=== PATIENT | male | born 1990 | race Caucasian/White ===

== ENCOUNTER 2018-02-06 20:37 | Emergency (ER) | payer OTHER ==
[~2018-02-06] VITALS: Ht 188 cm; Wt 77.1 kg
--- OUTSIDE RECORDS SUMMARY | ~2018-02-06 | XMS | Clinical Summary ---
Demographics + + + | Address | [address] | | | [place] [address] | + + + | Home Phone | | + + + | Preferred Language | Unknown | + + + | Marital Status | Single | + + + | Hindu Affiliation | NON | + + + [...] [place] | | | | | [address] | | + + + + + Care Team Providers + +------+ + | Care Water Reuse Program Manager Name | Role | Phone | + +------+ + | No Pcp Per Patient | PP | Unavailable | + +------+ + Source Comments ASAD is fully live on both [facility] Ambulatory and [facility] InPatient.[facility] Allergies No Known Allergies Current Medications + [...] | | | | | | | anxiety | ANXIETY | | | | | [...] | | | | Depression Treatment | bedtime.Take half of | | | | | | | Adjunct | a 100MG tablet | | | | | | | | every 4 hours as | | [...] | + + + + + | INFLUENZA VACCINE | | | | | (FLU SHOT) | 7 | | | + + + + + Results Not on filefrom Last 3 Months
--- OUTSIDE RECORDS SUMMARY | ~2018-02-06 | XMS | Clinical Summary ---
Demographics + + + | Address | [address] | | | [place] [address] | + + + | Home Phone | | + + + | Preferred Language | Unknown | + + + | Marital Status | Single | + + + | Spiritism Affiliation | NON | + + + [...] [place] | | | | | [address] | | + + + + + Care Team Providers + +------+ + | Care Compliance Vice President Name | Role | Phone | + +------+ + | No Pcp Per Patient | PP | Unavailable | + +------+ + Source Comments ASAD is fully live on both [facility] Ambulatory and [facility] InPatient.[facility] Allergies No Known Allergies Current Medications [...]
[~2018-02-06 20:37] MED LIST: ANUSOL-HC30 GM PR; COLACE100 MG PO; CYCLOBENZAPRINE10 MG PO; IBUPROFEN800 MG PO; NAPROSYN500 MG PO; NORCO 5-325 TA1 EACH PO; ONDANSETRON ODT8 MG PO; PENICILLIN V P250 MG PO; PENICILLIN V P500 MG PO; PROTONIX40 MG PO; TRAMADOL HCL50 MG PO; VICODIN 5-3001 EACH PO; ZOFRAN ODT8 MG PO
[2018-02-06] MEDS ORDERED: AMOX TR-K CLV1 EAC1 PO (21:12)
== END 2018-02-06 21:30 | disposition home or self-care (01) ==
LOC: ED 20:37
DX: H66.93 Otitis media, unspecified, bilateral (principal); J01.00 Acute maxillary sinusitis, unspecified; F31.9 Bipolar disorder, unspecified; F32.9 Major depressive disorder, single episode, unspecified; F41.9 Anxiety disorder, unspecified; F17.200 Nicotine dependence, unspecified, uncomplicated
CPT/HCPCS: 99282

== ENCOUNTER 2019-03-01 12:28 | Emergency (ER) | payer OTHER ==
[~2019-03-01] VITALS: Ht 188 cm; Wt 77.1 kg
--- OUTSIDE RECORDS SUMMARY | ~2019-03-01 | XMS | Clinical Summary ---
Demographics + + + | Address | [address] | | | [place] [address] | + + + | Home Phone | | + + + | Preferred Language | Unknown | + + + | Marital Status | Single | + + + | Confucianism Affiliation | NON | + + + | Race | White | + + + | Ethnic Group | Not or | + + + Author + + + | Author | [facility] | + + + | Organization | [facility] | + + + | Address | Unknown | + + + | Phone | Unavailable | + + + Support + + + + + | Name | Relationship | Address | Phone | + + + + + | PJ FERNANDEZ | ECON | [address] | | | | | [place] | | | | | [address] | | + + + + + Care Team Providers + +------+ + | Care First Aid Trainer Name | Role | Phone | + +------+ + | No Pcp Per Patient | PP | Unavailable | + +------+ + Source Comments ASAD is fully live on both [facility] Ambulatory and [facility] InPatient.[facility] Allergies No Known Allergies Current Medications + + +---------+---------+------+------+-------+ | Prescription | Sig. | Disp. | Refills | Star | End | Statu | | | | | | t | Date | s | | | | | | Date | | | + + +---------+---------+------+------+-------+ | hydrOXYzine | Take 50 mg by mouth | | | | | Activ | | pamoate 50 mg oral | every six hours as | | | | | e | | capsuleIndications: | needed. Indications: | | | | | | | anxious | ANXIETY | | | | | | + + +---------+---------+------+------+-------+ | QUEtiapine 100 mg | Take by mouth: 1 | 42 | 0 | 04/0 | | Activ | | oral tablet | tablet daily in the | tablet | | 8/20 | | e | | | morning, 2 tablets | | | 14 | | | | | (200mg) daily at | | | | | | | | bedtime, and may | | | | | | | | take 1/2 tablet | | | | | | | | (50mg) every 4 hours | | | | | | | | as needed for | | | | | | | | agitation | | | | | | + + +---------+---------+------+------+-------+ | FLUoxetine 20 mg | Take 1 capsule by | 7 | 0 | 05/0 | | Activ | | oral capsule | mouth once daily. | capsule | | 1/20 | | e | | | | | | 14 | | | + + +---------+---------+------+------+-------+ | lithium carbonate | Take 2 tablets by | 28 | 0 | 05/0 | | Activ | | 300 mg oral tablet | mouth two times | tablet | | 1/20 | | e | | | daily. | | | 14 | | | + + +---------+---------+------+------+-------+ | QUEtiapine | Take one 100MG | 35 | 0 | 05/0 | | Activ | | (SEROQUEL) 100 mg | tablet ever morning. | tablet | | 1/20 | | e | | oral | Take two 100MG | | | 14 | | | | tabletIndications: | tablets at | | | | | | | Additional | bedtime.Take half of | | | | | | | Medications to Treat | a 100MG tablet | | | | | | | Depression | every 4 hours as | | | | | | | | needed for | | | | | | | | agitation. | | | | | | | | Indications: | | | | | | | | Depression Treatment | | | | | | | | Adjunct | | | | | | + + +---------+---------+------+------+-------+ | hydrOXYzine | Take 2 capsules by | 14 | 0 | 05/0 | | Activ | | pamoate 25 mg oral | mouth every four | capsule | | 1/20 | | e | | capsule | hours as needed for | | | 14 | | | | | anxiety. | | | | | | + + +---------+---------+------+------+-------+ Active Problems + + + | Problem | Noted Date | + + + | Opiate dependence (HCC) | 03/08/2014 | + + + | Suicidal ideation | 03/06/2014 | + + + | Mood disorder (HCC) | 02/10/2014 | + + + Social History + + + +--------+------+ | Tobacco Use | Types | Packs/Day | Years | Date | | | | | Used | | + + + +--------+------+ | Current Every Day | Cigarettes | 1.5 | | | | Smoker | | | | | + + + +--------+------+ + + +---------+ + | Alcohol Use | Drinks/We | oz/Week | Comments | | | ek | | | + + +---------+ + | No | | | h/o alcohol abuse; clean x 90 days | + + +---------+ + + + + | Sex Assigned at | Date Recorded | | | | + + + | Not on file | | + + + Last Filed Vital Signs + + + + | Vital Sign | Reading | Time Taken | + + + + | Blood Pressure | 97/56 | 03/09/2014 7:53 AM PDT | + + + + | Pulse | 70 | 03/09/2014 7:53 AM PDT | + + + + | Temperature | 36.4 C (97.5 F) | 03/09/2014 7:53 AM PDT | + + + + | Respiratory Rate | 16 | 03/09/2014 7:53 AM PDT | + + + + | Oxygen Saturation | 99% | 03/06/2014 6:55 PM PDT | + + + + | Inhaled Oxygen | - | - | | Concentration | | | + + + + | Weight | 88.7 kg (195 lb 8 | 03/06/2014 7:20 PM PDT | | | oz) | | + + + + | Height | 188 cm (6' 2") | 03/06/2014 7:20 PM PDT | + + + + | Body Mass Index | 25.1 | 03/06/2014 7:20 PM PDT | + + + + Plan of Treatment + + + + + | Health Maintenance | Due Date | Last Done | Comments | + + + + + | Pneumococcal (Adult) | | | | | ( - PPSV23) | 0 | | | + + + + + | Influenza (Flu) | | | | | vaccination (#1) | 8 | | | + + + + + Results Not on filefrom Last 3 Months Insurance + +--------+ +--------+ + + | Payer | Benefi | Subscriber | Type | Phone | Address | | | t Plan | ID | | | | | | / | | | | | | | Group | | | | | + +--------+ +--------+ + + | [place] | BLUE | xxxxxxxxx | PPO | [phone] [address] [phone] [place] | | | CROSS | | | [address] | [place] [address] | | | [place] | | | | | | | L | | | | | + +--------+ +--------+ + + | [employer] MEDICAID | CON[employer]VER | xxxxxxxx | Medica | | | | | [place] | | id | | | | | [place] | | | | | + +--------+ +--------+ + + + +--------+ +--------+ + + | Guarantor Name | Accoun | Relation to | Date | Phone | Billing Address | | | t Type | Patient | of | | | | | | | | | | + +--------+ +--------+ + + | CARLOS FERNANDEZ | Person | Self [birth year] | Home: | [address] | | | al/Fam | | 1989 | - | [place] [address] | | | breanna | | | [address] | | + +--------+ +--------+ + + | CARLOS FERNANDEZ | Behavi | Self | [birth year] | Home: | [address] | | | oral | | 1989 | - | [place] [address] | | | Health | | | [address] | | + +--------+ +--------+ + +
--- OUTSIDE RECORDS SUMMARY | ~2019-03-01 | XMS | Clinical Summary ---
Demographics + + + | Address | [address] | | | [place] [address] | + + + | Home Phone | | + + + | Preferred Language | Unknown | + + + | Marital Status | Single | + + + | Sabianism Affiliation | Unknown | + + + | Race | Unknown | + + + | Ethnic Group | Unknown | + + + Author + + + | Author | [facility] | + + + | Organization | [facility] | + + + | Address | Unknown | + + + | Phone | Unavailable | + + + Support + + + + + | Name | Relationship | Address | Phone | + + + + + | Paulie Fernandez | ECON | [address] | | | | | [place] | | | | | [address] | | + + + + + Care Team Providers + +------+ + | Care Fruit Farmer Name | Role | Phone | + +------+ + | Dr. Florence | PP | Unavailable | + +------+ + Allergies Not on File Current Medications Not on file Active Problems Not on file Social History + +-------+ +--------+------+ | Tobacco Use | Types | Packs/Day | Years | Date | | | | | Used | | + +-------+ +--------+------+ | Never Assessed | | | | | + +-------+ +--------+------+ + + + | Sex Assigned at | Date Recorded | | | | + + + | Not on file | | + + + Plan of Treatment Not on file Results Not on filefrom Last 3 Months"
--- OUTSIDE RECORDS SUMMARY | ~2019-03-01 | XMS | Clinical Summary ---
Demographics + + + | Address | [address] | | | [place] [address] | + + + | Home Phone | | + + + | Preferred Language | Unknown | + + + | Marital Status | Single | + + + | Latter-Day Affiliation | Unknown | + + + | Race | Unknown | + + + | Ethnic Group | Unknown | + + + Author + + + | Author | [facility] | + + + | Organization | [facility] | + + + | Address | Unknown | + + + | Phone | Unavailable | + + + Support + + + + + | Name | Relationship | Address | Phone | + + + + + | Paulie Fernandez | ECON | [address] | | | | | [place] | | | | | [address] | | + + + + + Care Team Providers + +------+ + | Care Laborer Laboratory Name | Role | Phone | + [...]
--- OUTSIDE RECORDS SUMMARY | ~2019-03-01 | XMS | Clinical Summary ---
Demographics + + + | Address | [address] | | | [place] [address] | + + + | Home Phone | | + + + | Preferred Language | Unknown | + + + | Marital Status | Single | + + + | Muslim Affiliation | NON | + + + [...] [place] | | | | | [address] | | + + + + + Care Team Providers + +------+ + | Care Computer Systems Administrator Name | Role | Phone | + +------+ + | No Pcp Per Patient | PP | Unavailable | + +------+ + Source Comments ASAD is fully live on both [facility] Ambulatory and [facility] InPatient.[facility] Allergies No Known Allergies Current Medications [...] | PPO | [phone] | [address] [phone] [place] | | | CROSS | | | [address] | [place] [address] | | | [place] | | | | | | | L | | | | | + +--------+ +--------+ + + | LOCOMOTIVE INSPECTOR MEDICAID | LOCOMOTIVE INSPECTOR | xxxxxxxx | Medica | | | [...] 1989 | - | [place] [address] | | | [place] | | | [address] | | + +--------+ +--------+ + + | CARLOS FERNANDEZ | Behavi | Self | [birth year] | Home: | [address] | | | oral | | 1989 | - | [place] [address] | | | Health | | | [address] | | + +--------+ +--------+ + +
[~2019-03-01 12:28] MED LIST changes: +AMOX TR-K CLV1 EAC1 PO
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
[2019-03-01] MEDS ORDERED: KEFLEX500 MG PO (14:02)
[2019-03-01] MEDS ORDERED: MEDROL4 MG PO (14:02)
[2019-03-01] MEDS ORDERED: IBU600 MG PO (14:02)
== END 2019-03-01 14:19 | disposition home or self-care (01) ==
LOC: ED 12:28
DX: L03.116 Cellulitis of left lower limb (principal); L03.115 Cellulitis of right lower limb; F31.9 Bipolar disorder, unspecified; F41.9 Anxiety disorder, unspecified; F17.200 Nicotine dependence, unspecified, uncomplicated
CPT/HCPCS: 73630; 80053; 84550; 85025; 96374; 99283-25; J1885

== ENCOUNTER 2021-05-08 20:51 | Emergency (ER) | payer OTHER ==
[~2021-05-08] VITALS: Ht 188 cm; Wt 72.6 kg
[~2021-05-08 20:51] MED LIST changes: +IBU600 MG PO; +KEFLEX500 MG PO; +MEDROL4 MG PO
--- OUTSIDE RECORDS SUMMARY | 2021-05-08 21:02 | XMS ---
PreManage Notification: CAMERON ARMIJO Security Valve Liner Rubber Events No recent Security Events currently on file CRITERIA MET - Group Notification CARE PROVIDERS [facility] 10/14/2018-Current PHONE: [phone] Gurvinder has no Care Guidelines for this patient. EKun VISIT COUNT (12 MO.) 1 JASON Nava TOTAL 1 NOTE: Visits indicate total known visits. ED/UCC VISIT TRACKING (12 MO.) 05/08/2021 20:52 [facility] [place] TYPE: Emergency COMPLAINT: - HEADACHE, POSS HEAD INJURY INPATIENT VISIT TRACKING (12 MO.) No inpatient visits to display in this time frame [id number]
[2021-05-08] MEDS ORDERED: ZOFRAN4 MG PO (22:25)
== END 2021-05-08 22:45 | disposition home or self-care (01) ==
LOC: ED 20:51
DX: S06.0X0A Concussion without loss of consciousness, initial encounter (principal); S16.1XXA Strain of muscle, fascia and tendon at neck level, initial encounter; S40.011A Contusion of right shoulder, initial encounter; S20.211A Contusion of right front wall of thorax, initial encounter; W17.89XA Other fall from one level to another, initial encounter
CPT/HCPCS: 70450; 71046; 72125; 73030; 99284-25

== ENCOUNTER 2021-07-13 14:13 | Emergency (ER) | payer OTHER ==
[~2021-07-13] VITALS: Ht 188 cm; Wt 90.7 kg
[~2021-07-13 14:13] MED LIST changes: +ZOFRAN4 MG PO
--- OUTSIDE RECORDS SUMMARY | 2021-07-13 14:20 | XMS ---
PreManage Notification: CAMERON ARMIJO Security Catalogue And Special Products Manager Events No recent Security Events currently on file CRITERIA MET - [facility] - 2 Visits in 30 Days - Group Notification CARE PROVIDERS [facility], Clinic[facility]Center: [facility] PHONE: [phone] [facility] 10/14/2018-Current PHONE: [phone] Gurvinder has no Care Guidelines for this patient. E.Madhu VISIT COUNT (12 MO.) [facility] TOTAL 3 NOTE: Visits indicate total known visits. ED/UCC VISIT TRACKING (12 MO.) 07/13/2021 14:14 JASON Heller TYPE: Emergency COMPLAINT: - CHEST PAIN,LEFT ARM PAIN 06/22/2021 23:04 [facility] DIAGNOSES: 0. SI 05/08/2021 20:52 [facility] [place] TYPE: Emergency COMPLAINT: - HEADACHE, POSS HEAD INJURY DIAGNOSES: - Contusion of right shoulder, initial encounter - Concussion without loss of consciousness, initial encounter - Other fall from one level to another, initial encounter - Contusion of right front wall of thorax, initial encounter - Strain of muscle, fascia and tendon at neck level, initial encounter INPATIENT VISIT TRACKING (12 MO.) No inpatient visits to display in this time frame [id number]
--- NOTE | 2021-07-13 19:04 | EKG ---
[facility] [address] [place] [address] Signed Sinus tachycardia Cannot rule out Inferior infarct , age undetermined Abnormal ECG No previous ECGs available Confirmed by BECKY DOMINGUEZ MD ([id number]) on 07/13/2021 7:04:04 PM Electronically Signed By: BECKY DOMINGUEZ MD 07/13/21 1904 PATIENT NAME: CAMERON ARMIJO Electrocardiogram DATE OF : [birth year] PHYSICIAN: BECKY DOMINGUEZ MD REPORT #: [id number] REPORT IS CONFIDENTIAL AND NOT TO BE RELEASED WITHOUT AUTHORIZATION
== END 2021-07-13 18:28 | disposition home or self-care (01) ==
LOC: ED 14:13
DX: U07.1 COVID-19 (principal); Z87.891 Personal history of nicotine dependence
CPT/HCPCS: 71045; 80053; 81001; 83735; 84484; 85025; 85379; 93005; 93010; 99285-25; C9803; U0003

== ENCOUNTER 2021-07-15 20:30 | Emergency (ER) | payer OTHER ==
[~2021-07-15] VITALS: Ht 188 cm; Wt 90.7 kg
--- OUTSIDE RECORDS SUMMARY | 2021-07-15 20:32 | XMS ---
PreManage Notification: CAMERON ARMIJO Security Charger Operator Events No recent Security Events currently on file CRITERIA MET - Group Notification - [facility] - 2 Visits in 30 Days CARE PROVIDERS [facility], Clinic[facility]Center: [facility] PHONE: [phone] [facility] 10/14/2018-Current PHONE: [phone] Gurvinder has no Care Guidelines for this patient. E.DBrielle VISIT COUNT (12 MO.) [facility] TOTAL 4 NOTE: Visits indicate total known visits. ED/UCC VISIT TRACKING (12 MO.) 07/15/2021 20:30 [facility] [place] TYPE: Emergency COMPLAINT: - SHORTNESS OF BREATH 07/13/2021 14:14 [facility] [place] TYPE: Emergency COMPLAINT: - CHEST PAIN,LEFT ARM PAIN 06/22/2021 23:04 [facility] TYPE: Emergency DIAGNOSES: 0. SI 05/08/2021 20:[address] [facility] [address] [facility] [place] TYPE: Emergency COMPLAINT: - HEADACHE, POSS [...] visits to display in this time frame [email or web address]
--- NOTE | 2021-07-17 13:23 | EKG ---
[facility] [address] [place] [place] [address] Signed Sinus tachycardia Nonspecific T wave abnormality Abnormal ECG When compared with ECG of 13-JUL-2021 14:22, No significant change was found Confirmed by BECKY DOMINGUEZ MD ([id number]) on 07/17/2021 1:22:58 PM Electronically Signed By: BECKY DOMINGUEZ MD 07/17/21 1323 PATIENT NAME: CHERELLEJANINACAMERON MCGRATHON Electrocardiogram DATE OF : [birth year] PHYSICIAN: BECKY DOMINGUEZ MD REPORT #: [id number] REPORT IS CONFIDENTIAL AND NOT TO BE RELEASED WITHOUT AUTHORIZATION
== END 2021-07-15 21:55 | disposition home or self-care (01) ==
LOC: ED 20:30
DX: U07.1 COVID-19 (principal); Z87.891 Personal history of nicotine dependence
CPT/HCPCS: 71045; 93005; 93010; 99285-25

== ENCOUNTER 2021-08-15 09:57 | Emergency (ER) | payer OTHER ==
[~2021-08-15] VITALS: Ht 188 cm; Wt 90.7 kg
--- OUTSIDE RECORDS SUMMARY | 2021-08-15 10:00 | XMS ---
PreManage Notification: CAMERON ARMIJO Security Superintendent Mechanical Events 1 event(s) in the past 18 months Most recent security events: Elopement at [facility] 08/05/2021 10:22 - Other Details: PATIENT LWBS CRITERIA MET - 6 ED Visits in 6 Months - [facility] - 2 Visits in 30 Days - Group Notification CARE PROVIDERS [facility], Clinic[facility]Center: [facility] PHONE: [phone] [facility] 10/14/2018-Current PHONE: [phone] Gurvinder has no Care Guidelines for this patient. E.D. VISIT COUNT (12 MO[address] [facility] [address] [facility] [address] [facility] [place] TOTAL 6 NOTE: Visits indicate total known visits. ED/UCC VISIT TRACKING (12 MO.) 08/15/2021 09:58 [facility]ON [facility] [place] TYPE: Emergency COMPLAINT: - POSS HERNIA 08/05/2021 10:22 [facility] [place] TYPE: Emergency COMPLAINT: - TOOTH PAIN 07/15/2021 20:30 [facility] [place] TYPE: Emergency COMPLAINT: - SHORTNESS OF BREATH DIAGNOSES: - Personal history of nicotine dependence - 07/13/2021 14:14 [facility] [place] TYPE: Emergency COMPLAINT: - CHEST PAIN,LEFT ARM PAIN DIAGNOSES: - Anesthesia of skin - Personal history of nicotine dependence - Other chest pain - - Headache, unspecified 06/22/2021 23:04 [facility] DIAGNOSES: 0. SI 05/08/2021 20:52 [...] visits to display in this time frame [id number]
== END 2021-08-15 11:55 | disposition home or self-care (01) ==
LOC: ED 09:57
DX: K40.90 Unilateral inguinal hernia, without obstruction or gangrene, not specified as recurrent (principal); Z87.891 Personal history of nicotine dependence
CPT/HCPCS: 74177; 80053; 81001; 85025; 99284-25; Q9967

== ENCOUNTER 2021-09-15 09:00 | Emergency (ER) | payer OTHER ==
[~2021-09-15] VITALS: Ht 188 cm; Wt 100.9 kg
--- OUTSIDE RECORDS SUMMARY | 2021-09-15 09:02 | XMS ---
PreManage Notification: CAMERON ARMIJO Security Transportation Agent Events 1 event(s) in the past 18 months Most recent security events: Elopement at [facility] 08/05/2021 10:22 - Other Details: PATIENT LWBS CRITERIA MET - Group Notification - PDMP - ED - Positive COVID-19 Lab Result - [facility] - 6 ED Visits in 6 Months CARE PROVIDERS [facility] Clinic[facility]: [facility] PHONE: [phone] [facility] 10/14/2018-Current PHONE: [phone] Gurvinder has no Care Guidelines for this patient. E.D. VISIT COUNT (12 MO.) 1 [facility] [address] [facility] [address] [facility] [place] TOTAL 7 NOTE: Visits indicate total known visits. ED/UCC VISIT TRACKING (12 MO.) 09/15/2021 09:01 [facility]ON [facility] [place] TYPE: Emergency COMPLAINT: - HEADACHE 08/15/2021 09:58 [facility] [place] TYPE: Emergency COMPLAINT: - POSS HERNIA DIAGNOSES: - Personal history of nicotine dependence - Unilateral inguinal hernia, without obstruction or gangrene, not specified as recurrent - Left lower quadrant pain 08/05/2021 10:22 [facility] [place] TYPE: Emergency COMPLAINT: - TOOTH PAIN 07/15/2021 20:30 [facility] [place] [facility] TYPE: Emergency COMPLAINT: - SHORTNESS OF BREATH DIAGNOSES: - Personal history of nicotine dependence - 07/13/2021 14:14 [facility] COMPLAINT: - CHEST PAIN,LEFT ARM PAIN DIAGNOSES: - Anesthesia of skin - Personal history of nicotine dependence - Other chest pain - COVID- - Headache, unspecified 06/22/2021 23:04 [facility] DIAGNOSES: 0. SI 05/08/2021 20:52 [...] visits to display in this time frame [id number]
[2021-09-15] MEDS ORDERED: EXCEDRIN EXTRA1 EAC1 PO (09:18)
[2021-09-15] MEDS ORDERED: AMOXICILLIN500 MG PO (12:12)
== END 2021-09-15 13:00 | disposition home or self-care (01) ==
LOC: ED 09:00
DX: G43.909 Migraine, unspecified, not intractable, without status migrainosus (principal); J32.9 Chronic sinusitis, unspecified; Z20.822 Contact with and (suspected) exposure to COVID-19; Z87.891 Personal history of nicotine dependence
CPT/HCPCS: 70450; 80053; 85025; 96365; 96366; 96375; 99284-25; J0780; J1100; J1200; J1885; J3475; J7030; U0003

== ENCOUNTER 2021-11-27 09:20 | Emergency (ER) | payer OTHER ==
[~2021-11-27] VITALS: Ht 188 cm; Wt 102.1 kg
[~2021-11-27 09:20] MED LIST changes: +AMOXICILLIN500 MG PO; +EXCEDRIN EXTRA1 EAC1 PO
[2021-11-27] MEDS ORDERED: HYDROXYZINE HCL50 MG PO (09:48)
--- OUTSIDE RECORDS SUMMARY | 2021-11-27 09:50 | XMS ---
PreManage Notification: CAMERON ARMIJO Security Display Decorator Events 1 event(s) in the past 18 months Most recent security events: Elopement at [facility] 08/05/2021 10:22 - Other Details: PATIENT LWBS CRITERIA MET - Group Notification - ED - Positive COVID-19 Lab Result - [facility] - 6 ED Visits in 6 Months CARE PROVIDERS [facility] 10/14/2018-Current PHONE: Unknown Gurvinder has no Care Guidelines for this patient. Yudith VISIT COUNT (12 MO.) 1 Brielle Goode M.C.[address] TOTAL 8 NOTE: Visits indicate total known visits. ED/UCC VISIT TRACKING (12 MO.) 11/27/2021 09:21 [facility]ON [facility] [place] TYPE: Emergency COMPLAINT: - VOMITING, ABDOMINAL PAIN 09/15/2021 09:01 [facility] [place] TYPE: Emergency COMPLAINT: - HEADACHE DIAGNOSES: - Personal history of nicotine dependence - Headache, unspecified - Chronic sinusitis, unspecified - Migraine, unspecified, not intractable, without status migrainosus 08/15/2021 09:58 [facility] [place] TYPE: Emergency COMPLAINT: - POSS HERNIA DIAGNOSES: - Personal history of nicotine dependence - Unilateral inguinal hernia, without obstruction or gangrene, not specified as recurrent - Left lower quadrant pain 08/05/2021 10:22 JASON Heller TYPE: Emergency COMPLAINT: - TOOTH PAIN 07/15/2021 20:30 JASON Heller TYPE: Emergency COMPLAINT: - SHORTNESS OF BREATH DIAGNOSES: - Personal history of nicotine dependence - - 07/13/2021 14:14 JASON Heller TYPE: Emergency COMPLAINT: - CHEST PAIN,LEFT ARM PAIN DIAGNOSES: - Anesthesia of skin - Personal history of nicotine dependence - Other chest pain - COVID- - Headache, unspecified 06/22/2021 23:04 [facility] TYPE: Emergency DIAGNOSES: 0. SI 05/08/2021 [...] visits to display in this time frame [id number]
== END 2021-11-27 14:29 | disposition left against medical advice (07) ==
LOC: ED 09:20
DX: R10.32 Left lower quadrant pain (principal); N50.812 Left testicular pain; Z20.822 Contact with and (suspected) exposure to COVID-19; Z87.891 Personal history of nicotine dependence; Z79.899 Other long term (current) drug therapy
CPT/HCPCS: 74177; 80053; 85025; 96375; 99284-25; C9803; J1170; J2405; Q9967; U0003

== ENCOUNTER 2021-12-05 19:35 | Emergency (ER) | payer OTHER ==
[~2021-12-05] VITALS: Ht 188 cm; Wt 104.3 kg
[~2021-12-05 19:35] MED LIST changes: +HYDROXYZINE HCL50 MG PO
--- OUTSIDE RECORDS SUMMARY | 2021-12-05 19:38 | XMS ---
PreManage Notification: CAMERON ARMIJO Security Qa Test Lead Events 2 event(s) in the past 18 months Most recent security events: Elopement at [facility] 11/27/2021 09:21 - Other Details: PATIENT LEFT AMA Elopement at [facility] 08/05/2021 10:22 - Other Details: PATIENT LWBS CRITERIA MET - ED - Positive COVID-19 Lab Result - [facility] - [facility] - 2 Visits in 30 Days - PDMP - Group Notification - 6 ED Visits in 6 Months CARE PROVIDERS JO ANN GREER Current PHONE: [phone] [facility] 11/27/2021-Current PHONE: Unknown Gurvinder has no Care Guidelines for this patient. E.D. VISIT COUNT ([address] [facility]ON Nava TOTAL 9 NOTE: Visits indicate total known visits. ED/UCC VISIT TRACKING (12 MO.) 12/05/2021 19:36 [facility] [place] TYPE: Emergency COMPLAINT: - OVERDOSE 11/27/2021 09:21 [facility] [place] TYPE: Emergency COMPLAINT: - VOMITING, ABDOMINAL PAIN DIAGNOSES: - Personal history of nicotine dependence - Left testicular pain - Other alf (current) drug therapy - Left lower quadrant pain 09/15/2021 09:01 [facility] [place] TYPE: Emergency [...] Left lower quadrant pain 08/05/2021 10:22 [facility] [place] TYPE: Emergency COMPLAINT: - TOOTH PAIN 07/15/2021 20:30 [facility] [place] TYPE: Emergency COMPLAINT: - SHORTNESS OF BREATH DIAGNOSES: - Personal history of nicotine dependence - COVID- 07/13/2021 14:[address] [facility] [address] [facility] [place] TYPE: Emergency COMPLAINT: - CHEST PAIN,LEFT ARM PAIN DIAGNOSES: - Anesthesia of skin - Personal history of nicotine dependence - Other chest pain - COVID- - Headache, unspecified 06/22/2021 23:04 [facility] TYPE: Emergency DIAGNOSES: 0. SI 05/08/2021 20:[address] [facility] [address] [facility] [place] TYPE: Emergency COMPLAINT: [...] visits to display in this time frame [id number]
[2021-12-05] MEDS ORDERED: DESVENLAFAXINE50 M3 PO (19:45)
--- NOTE | 2021-12-05 20:35 | NUR ---
EKG DONE JUST BEFORE HE LEFT FIRST TIME.
[2021-12-06] MEDS ORDERED: REXULTI3 MG PO (07:43)
--- NOTE | 2021-12-06 13:32 | EKG ---
[facility] [address] [place] [address] Signed Sinus tachycardia Otherwise normal ECG When compared with ECG of 15-JUL-2021 20:36, T wave inversion no longer evident in Inferior leads T wave inversion no longer evident in Lateral leads Confirmed by LOR CUTLER DO ([id number]) on 12/06/2021 1:32:45 PM Electronically Signed By: LOR CUTLER DO 12/06/21 1332 PATIENT NAME: CHERELLELORENACAMERON Electrocardiogram DATE OF : [birth year] PHYSICIAN: LOR CUTLER DO REPORT #: [id number] REPORT IS CONFIDENTIAL AND NOT TO BE RELEASED WITHOUT AUTHORIZATION
== END 2021-12-05 19:59 | disposition left against medical advice (07) ==
LOC: ED 19:35
DX: T43.592A Poisoning by other antipsychotics and neuroleptics, intentional self-harm, initial encounter (principal); T43.212A Poisoning by selective serotonin and norepinephrine reuptake inhibitors, intentional self-harm, initial encounter; T43.622A Poisoning by amphetamines, intentional self-harm, initial encounter; Z87.891 Personal history of nicotine dependence; Z79.899 Other long term (current) drug therapy
CPT/HCPCS: 31500; 80053; 82010; 82553; 83735; 85025; 93005; 93010; 94002; 99285-25; G0480

== ENCOUNTER 2021-12-05 20:28 | Inpatient (IN) | payer OTHER ==
[~2021-12-05] VITALS: Ht 188 cm; Wt 101.7 kg
[~2021-12-05 20:28] MED LIST changes: +DESVENLAFAXINE50 M3 PO
--- OUTSIDE RECORDS SUMMARY | 2021-12-05 20:30 | XMS ---
PreManage Notification: CAMERON ARMIJO Security [employer] Driver Events 2 event(s) in the past 18 months Most recent security events: Elopement at [facility] 11/27/2021 09:21 - Other Details: PATIENT LEFT AMA Elopement at [facility] 08/05/2021 10:22 - Other Details: PATIENT LWBS CRITERIA MET - PDMP - ED - Positive COVID-19 Lab Result - [facility] - [facility] - 2 Visits in 30 Days - 6 ED Visits in 6 Months - Group Notification CARE PROVIDERS JO ANN GREER Current PHONE: [phone] [facility] 11/27/2021-Current PHONE: Unknown Gurvinder has no Care Guidelines for this patient. E.D. VISIT COUNT ([address] [facility] TOTAL 10 NOTE: Visits indicate total known visits. ED/UCC VISIT TRACKING (12 MO.) 12/05/2021 20:29 [facility] TYPE: Emergency COMPLAINT: - OD INTENTIONAL 12/05/2021 19:36 [facility] TYPE: Emergency COMPLAINT: - OVERDOSE 11/27/2021 09:21 [facility] TYPE: Emergency COMPLAINT: - VOMITING, ABDOMINAL PAIN DIAGNOSES: - Personal history of nicotine dependence - Left testicular pain - Other residential (current) drug therapy - Left lower quadrant [...] - Personal history of nicotine dependence - COVID-19 07/13/2021 14:14 [facility] TYPE: Emergency COMPLAINT: - CHEST PAIN,LEFT ARM PAIN DIAGNOSES: - Anesthesia of skin - Personal history of nicotine dependence - Other chest pain - COVID-19 - Headache, unspecified 06/22/2021 23:04 [facility]: [facility] DIAGNOSES: 0. SI [...] visits to display in this time frame [email or web address]
--- NOTE | 2021-12-06 02:00 | NUR ---
RECIEVED PT FROM ED, BEDSIDE REPORT GIVEN, RT ACCOMAPAINED RN AND PT TO CT, DURING CT PT BEGAN ATTEMPTING TO REMOVE ETT AND SIT UP, PROPOFOL TITRATED FROM 15 TO 20, AFTER 5 MINUTES PT WAS STILL RESTLESS, RASS OF +3, PROPOFOL INCREASED TO 25, RASS OF -4 ACHEIVED. ONCE IN CCU AND PT WAS BEING TRANSFERRED, RASS INCREASED TO +3 AGAIN AND PT WAS REACHING FOR ETT AND FIGHTING VENT, PROPOFOL INCREASED TO 30, RASS OF -3 ACHEIVED, PT APPEARS COMFORTABLE. PT PLACED ON MONITOR UPON ARRIVAL, VITAL SIGNS OBTAINED, OG WAS CONNECTED TO LOW INTM SUCTION, RT AT BEDSIDE TO SET UP VENT, ASSESSMENT AND ADMISSION COMPLETED, MEDICAITONS REVIEWED, ADDITIONAL IV WAS PLACED FOR SODIUM BICARB DRIP. PT APPEARS COMFORTABLE, HOB AT 30 DEGREES, RASS CURRENTLY -3
--- NOTE | 2021-12-06 05:44 | NUR ---
PT SEDATED AND INTUBATED, PROPOFOL CURRENTLY AT 35, VERSED AT 8, RASS OF -3. FIO2 DECREASED TO 40%, PT SATING AT 100%, REMAINS VERY TENSE AND STIFF IN EXTREMITIES
[2021-12-06] MEDS ORDERED: REXULTI3 MG PO (07:43)
--- NOTE | 2021-12-06 08:00 | NUR ---
PT RASS -3. V/S WITH VENT SETTINGS ARE WDL, PT IS NOT FIGHTING THE VENT. UPPER LOBES CLEAR, LOWER LOBES CLEAR BUT DIMINISHED. PUPILS 2MM AND FIXED. PT IS RELAXED AND LIMBS ARE EASY TO MOVE. RESTRAINTS ARE WDL SO FAR, ABD SOUNDS PRESENT, NO PERIPH. EDEMA NOTED, RADIAL AND PEDIS PULSES +2, URINE OUTPUT WDL.
--- NOTE | 2021-12-06 08:45 | NUR ---
PER DR. CUTLER PATIENT TO REMAIN ON VENT UNTIL CLEARED BY POISN CONTROL. WILL EVEALUATE WHEN ABLE.
--- NOTE | 2021-12-06 09:02 | NUR ---
MD CUTLER REVIEWD X-RAY. OG TUBE TO BE ADVANCED 10 CM, TUBE TO BE ADVANCED 3CM, WILL DO ANOTHER CHEST X-RAY AFTERWARDS.
--- NOTE | 2021-12-06 10:06 | NUR ---
ET TUBE WAS ADVNCED BY RT BY 4.5CM ABOUT 30 MINUTES AGO. FOR THE OG TUBE I WILL WAIT FOR X-RAY REPORT AND IF IG TUBE IS STILL NOT IN THE RIGHT PLACE, I WILL PULL IT AND RE-INSERT IT WERE MD CUTLER'S WISHES.
--- NOTE | 2021-12-06 10:49 | NUR ---
MED REC COMPLETED BY PHARMACY
--- NOTE | 2021-12-06 12:00 | NUR ---
PT ON VENT, NO FAMILY PRESENT. WILL FOLLOW
--- NOTE | 2021-12-06 12:00 | NUR ---
ALL LOBES CLEAR, RASS -3 AT THIS TIME , URINE OUTPUT HAS DECREASED THOUGH. WILL CONTINUE TO MONITOR. NO PERIPH. EDMEA NOTED, MUSCLES ARE RELAXED, PT AFEBRILE, OVERALL NO NEW CONCERNS NOTED WITH THIS ASSESSMENT.
--- NOTE | 2021-12-06 13:00 | NUR ---
ETT TUBE NOW IS 28CM AT THE LIP. OG-TUBE HAS BEEN ADVANCED FOR ABOUT 17CM OVERALL. WAITING ON CHEST X-RAY REPORT.
--- NOTE | 2021-12-06 13:34 | EKG ---
[facility] [address] [facility] [facility] [place], [place] [address] Signed Normal sinus rhythm Nonspecific T wave abnormality Abnormal ECG When compared with ECG of 05-DEC-2021 19:54, (Unconfirmed) No significant change was found Confirmed by LOR CUTLER DO ([id number]) on 12/06/2021 1:34:06 PM Electronically Signed By: LOR CUTLER DO 12/06/21 1334 PATIENT NAME: CHERELLEJANINACAMERON MCGRATHON Electrocardiogram DATE OF : [birth year] PHYSICIAN: LOR CUTLER DO REPORT #: [id number] REPORT IS CONFIDENTIAL AND NOT TO BE RELEASED WITHOUT AUTHORIZATION
--- NOTE | 2021-12-06 14:30 | NUR ---
LAST CHEST X-RAY STATED THAT OG-TUBE WAS STABLE. AT THIS TIME IT HAS BEEN IMPOSSIBLE TO FLUSH THE TUBE WITH MORE THAN 20MLS OF H2O DUE TO RESISTANCE. THE TUBE WAS PULLED AND ADVANCED 4CM [address] TO SEE IF THAT WOULD CHANGE ANYTHING. UNFORTUNATLY, THE RESISTANCE ENCOUNTERED DID NOT CHANGE. WILL CALL MD BERRIOS ONCE THEY ARE DONE WITH THEIR REPORT.
--- NOTE | 2021-12-06 15:47 | NUR ---
CALLED MD BERRIOS ABOUT OG TUBE. RECEIVED ORDERS TO PULL OG TUBE AND RE-INSERT A NEW ONE. KUB AFTERWARDS.
--- NOTE | 2021-12-06 16:31 | NUR ---
NEW OG-TUBE PLACED. WAITING ON X-RAY CONFIRMATION AT THIS TIME. URINE HAS A GREEN TINT. PERHAPS FROM THE PROPOFOL. URINE OUTPUT ADEQUATE AGAIN, PT ONCE AGAIN RE-POSITIONED. ALL LOBES CLEAR, ABD SOUNDS PRESENT. SOME GENERALIZED EDEMA NOTED IN BILATERAL HANDS AT THIS TIME. V/S STABLE. OVERALL NO NEW CONCERNS NOTED.
--- NOTE | 2021-12-06 18:31 | NUR ---
OG TUBE RUNNING ON L/I/S. BLOOD PRESENT AT THIS TIME. PT SUCTIONED ORALLY AND INLINE. V/S STABLE.
--- NOTE | 2021-12-06 21:19 | NUR ---
UPON ARRIVAL TO SHIFT, PT SEDATED AND INTUBATED, RASS -4, HEAD TO TOE ASSESSMENT COMPLETED, MEDICAITONS REVIEWED AND DRLINDEN VERIFIED, PT APPEARS COMFORTABLE, OG CONNECTED TO LOW INTM SUCTION, BLOOD TINGED CONTENTS, DR BERRIOS CALLED AND ASKED IF SHE WOULD LIKE Q6 BLOOD SUGAR MONITORING ON PT DUE TO INTUBATION AND NPO FOR OVER 24 HOURS, STATED SHE DOESN'T THINK HE NEEDS Q6 BUT OKAY TO SPOT TONIGHT IF NEEDED.
--- NOTE | 2021-12-06 21:35 | NUR ---
PT APPEARS RESTLESS AND IS REACHING FOR TUBE, RASS +1. VERSED TITRATED TO 12MG/HR AND PROPOFOL TITRATED TO 50MCG/KG/MIN. PT BOOSTED UP IN BED AND RESTRAINTS CHECKED. ORAL SUCTIONING PROVIDED, COPIOUS AMOUNT OF CLEAR SECRETIONS REMOVED FROM MOUTH. PRIMARY RN, NANDO, UPDATED ON SEDATION CHANGES.
--- NOTE | 2021-12-07 01:46 | NUR ---
PT BEGAN WAKING UP, RASS +1, WHEN MORE AWAKE PT BEGAN HAVING CLONUS IN BILATERAL LOWER EXTERMITIES WELL SPIKED A FEVER OF 100.0. POISON CONTROL CALLED TO DISCUSS SYMPTOMS. THEY STATED IT APPEARS THOUGH HE MAY HAVE BEEN HAVING CLONUS HOWEVER THE SEDATION HAS BEEN MASKING IT. THEY RECOMMENDED KEEPING HIM SEDATED AT A RASS OF -5 AND MONITORING FEVERS. THEY ALSO STATED TO ENSURE ADEQUATE URINE OUTPUT AND RENAL FUNCTION TO ENSURE HE CAN CLEAR THE MEDICAITON HE OVERDOSED ON. THEY STATED THERE IS A HIGH RISK OF PT HAVING A SEIZURE IF HE DOES NOT STAY VERY SEDATED. AFTER PHONE CALL, PT SEDATED TO A RASS OF -5 AND RECTAL TYLENOL GIVEN FOR FEVER. TAY SCHAEFER MONITOR AND NOTIFIY POISON CONTROL AND DR BERRIOS OF ANY CHANGES.
--- NOTE | 2021-12-07 03:03 | NUR ---
PT APPEARS RESTLESS, COUGHING AND GAGGING ON ETT. HR SINUS TACHY AT 108. PRN VALIUM GIVEN.
--- NOTE | 2021-12-07 04:55 | NUR ---
PT FEBRIL AT 100.1, UNABLE TO GIVE MORE TYLENOL AT THIS TIME, ICE PACKS APPLIED TO ARMPITS AND GROIN
--- NOTE | 2021-12-07 07:30 | NUR ---
REPORT RECIEVED. ON VENT WITH HOB ELEVATED.
--- NOTE | 2021-12-07 08:00 | NUR ---
ASSESSMENT DONE. CLONUS NOTED WITH MILD DORSIFLEXION AT ANKLE. PROPOFOL AT 50 MCG/KG/MIN INFUSING, VERSED GTT AT 14 MG/HR. IVF OF D5 WITH BICARB AT 125 ML/HR, VENT SETTINGS TV-640, FIO2-21, PEEP-5, CMV-16, PIP-30, ETCO2-38. SUCTIONED FOR ORAL SECRETION AND ETT.ETT-TAPED 28 AT LIP AND IS SIZE 7.5. MONTAGUE CATH PATENT. ORAL GASTRIC TUBE TO LIS WITH DARK SECRETIONS NOTED. ORAL CARE GIVEN. WRIST RESTRAINS ON.
--- NOTE | 2021-12-07 09:40 | NUR ---
VALIUM 10 MG IV GIVEN PRIOR TO AM CARES. REMAINS ON VENT WITH TV-640, CMV-16, FIO2-21,PEEP-5, SIZE 7.5 ETT, 28 AT LIP. MONTAGUE CATH PATENT WITH YELLOW URINE NOTED. SEDATED WITH PROPOFOL 50 MCG/KG/MIN, VERSED 14 MG/HR. PRN VALIUM. REMAINS ON BICARB GTT AT 1125 ML/HR. WRIST RESTRAINS ON. HOB ELEVATED.
--- NOTE | 2021-12-07 13:19 | NUR ---
CONTINUES ON SEDATION REMAINS ON VENT. CURRENTLY ON PROFOLOL AT 50 MG/KG/MIN. VERSED GTT AT 14 MG/HR. NO CHANGES IN VENT SETTINGS. MONTAGUE CATH PATENT WIOTH QA AMOUNT OF URINE NOTED. T 100.4 ORAL, AX TEMP WAS 98.8. REPOSITIONED. IS CALM ON VENT AT THIS TIME.
--- NOTE | 2021-12-07 13:45 | NUR ---
VALIUN 10 MG IV GIVEN PATIENT RESTLESS.
--- NOTE | 2021-12-07 15:15 | NUR ---
PROPOFOL INCREASED TO 70 MCG/KG/MIN EYES OPEN, MOVING LEGS, SEVERE COUGHING EPISODE, NOT FOLLOWING COMMANDS.
--- NOTE | 2021-12-07 16:16 | NUR ---
DR. BERRIOS AWARE OF FEVER OF 102.7. BLOOD CULTURES ORDERED. TYLENOL SUPP GIVEN. ASSESSMENT DONE.
--- NOTE | 2021-12-07 19:30 | NUR ---
PATIENT REPORT RECIEVED FROM TERRY GORDON. VENT SETTINGS PEEP 5, FI02 30, VT 640, RR 16, ETCO2 32. BREATHING EQUAL AND UNLABORED.
--- NOTE | 2021-12-07 20:00 | NUR ---
PATIENT ASSESSMENT COMPLETE. PROPOFOL RUNNING AT 60 MCG/KG/MIN. [place] RUNNING AT 14 MG/HR, SODIUM BICARB 125 MLS/HR. PATIENT RASS BETWEEN -3, -4. LUNG SOUNDS ARE CLEAR THROUGHOUT. VENT SETTINGS 30%FIO2, PEEP 5, VT 640, RR 16. HEART RATE 80-90 BPM. SINUS RHYTHM. TEMP 100.0. URINE GREEN, YELLOW AND CLEAR. NO BM. BOWEL TONES HYPOACTIVE. ORAL GASTRIC TUBE LIS DARK SECREATIONS. PATIENT EXTERMITIES STIFF WITH ROM. CLONUS FELT IN ANKLES. PULSES FELT STRONG. PATIENT WARM TO TOUCH. IV SITES PATENT. THIS RN IN ROOM AT THIS TIME.
--- NOTE | 2021-12-07 20:24 | NUR ---
PRN VALIUM 10 MG IV GIVEN PRIOR TO CARES. PATIENT CARE COMPLETE. REPOSITIONED. RESTRAINT CARE COMPLETE AND ROM. PULSES FELT STRONG. ORAL CARE AND SUCTIONING COMPLETE.
--- NOTE | 2021-12-07 20:24 | EKG ---
[facility] [address] [facility] [place] [address] Signed Normal sinus rhythm Cannot rule out Inferior infarct , age undetermined T wave abnormality, consider lateral ischemia Abnormal ECG When compared with ECG of 06-DEC-2021 00:23, (Unconfirmed) Inverted T waves have replaced nonspecific T wave abnormality in Inferior leads Inverted T waves have replaced nonspecific T wave abnormality in Lateral leads Confirmed by IZZY BERRIOS MD ([id number]) on 12/07/2021 8:24:02 PM Electronically Signed By: IZZY BERRIOS MD 12/07/212023 PATIENT NAME: CAMERON ARMIJO Electrocardiogram DATE OF : [birth year] PHYSICIAN: IZZY BERRIOS MD REPORT #: [id number] REPORT IS CONFIDENTIAL AND NOT TO BE RELEASED WITHOUT AUTHORIZATION
--- NOTE | 2021-12-07 20:24 | EKG ---
[facility] [address] [facility] [facility] [place] [address] Signed Normal sinus rhythm Cannot rule out Inferior infarct (cited on or before 06-DEC-2021) T wave abnormality, consider lateral ischemia Abnormal ECG When compared with ECG of 06-DEC-2021 09:28, (Unconfirmed) Non-specific change in ST segment in Anterior leads Confirmed by IZZY BERRIOS MD ([id number]) on 12/07/2021 8:24:40 PM Electronically Signed By: IZZY BERRIOS MD 12/07/212023 PATIENT NAME: CAMERON ARMIJO Electrocardiogram DATE OF : [birth year] PHYSICIAN: IZZY BERRIOS MD REPORT #: [id number] REPORT IS CONFIDENTIAL AND NOT TO BE RELEASED WITHOUT AUTHORIZATION
--- NOTE | 2021-12-07 22:00 | NUR ---
PROPOFOL TITRATED UP TO 70 MCG/KG/MIN. PATIENT RASS 0. PATIENT MOVING HEAD AND COUGHING. RESTRAINT CARE COMPLETE. ROM COMPLETE. PULSES FELT STRONG. ORAL SECRETIONS SUCTIONED.
--- NOTE | 2021-12-07 23:35 | NUR ---
PATIENT HEART RATE SUSTAINING IN THE 140-160 BPM. A-FIB RHYTHM. MD NOTIFIED ORDERS FOR MAGNESIUM DRAW, 10 MG IV DILTIAZEM PUSH. DILTIAZEM DRIP 5 MG/HR START. EKG ORDERED.
--- NOTE | 2021-12-08 | NUR ---
PATIENT ASSESSMEMT COMPLETE. DRIPS TITRATION SEE MAR. RASS SCORE -3, -4. LUNG SOUNDS ARE CLEAR THROUGHOUT. VENT SETTINGS VT 640, RR 16, FIO2 30%, PEEP 5.0. HEART RATE IN A-FIB 100-130 BPM. TEMP 99.5. URINE OUTPUT GREENISH YELLOW IN COLOR AND CLEAR. BOWEL TONES ACTIVE NO BM. PUPILS PERRLA. COLNUS IN ANKLES. RESTRAINT CARE COMPLETE. ROM COMPLETE. PLAN OF CARE UPDATED.
--- NOTE | 2021-12-08 00:15 | NUR ---
NOTIFIED ABOUT PATIENT K 2.8 AT MORNING DRAW 0600. ORDERED 40 MEQ K REPLACEMENT.
--- NOTE | 2021-12-08 01:00 | NUR ---
MD NOTIFIED ABOUT LOW BLOOD PRESSURES. 500 ML BOLUS OF NS ORDERED.
--- NOTE | 2021-12-08 02:00 | NUR ---
PATIENT REPOSITIONED. RESTRAINT CARE COMPLETE. ROM COMPLETE. ORAL CARE AND SUCTIONING COMPLETE.
--- NOTE | 2021-12-08 04:00 | NUR ---
PATIENT ASSESSMENT COMPLETE. PROPOFOL RUNNING AT 50 MCG/KG/MIN, VERSED RUNNING AT 12 MG/HR, SODIUM BICARB 125 MLS/HR. CARDIZEM DRIP 5 MG/HR. PATIENT RASS SCORE -3, -4. PATIENT LUNG SOUNDS ARE CLEAR THROUGHOUT. VENT SETTINGS VT 640, RR 16, PEEP 5, FI02 30%. HEART RATE IS 85-100 BPM AFIB. LOW GRADE FEVER 99.3. URINE OUTPUT GREENISH YELLOW AND CLEAR. NO BM. BOWEL TONES ACTIVE. OG SECRETIONS COFFEE GROUND IN COLOR LIS RUNNING. SKIN INTACT. LEFT FOREARM HAS SELF INFLICTED CUTS. PATIENT IS WARM TO TOUCH. PULSES FELT STRONG. RESTRAINT CARE COMPLETE. ROM COMPLETE. ORAL CARE AND ORAL SUCTION COMPLETE. PLAN OF CARE UPDATED.
--- NOTE | 2021-12-08 05:15 | NUR ---
MD NOTIFIED ABOUT LOW BLOOD PRESSURES. NOREPINEPHRENE DRIP ORDERED. STARTED AT 5 MCG/MIN.
--- NOTE | 2021-12-08 06:00 | NUR ---
RESTRAINT CARE COMPLETE. PULSES FELT STRONG. ROM COMPLETE. PATIENT REPOSITIONED IN BED.
--- NOTE | 2021-12-08 07:30 | NUR ---
REPORT RECIEVED. VENT SETTINGS, TV-640,CMV-16, PEEP-5,FIO2-30, PIP-20, ETCO2-30. SIZE 7.5 ETT IS TAPED 28 AT LIP. ORAL GASTRIC TUBE TAPED TO ETT, WITH GREEN SECTEATIONS NOTED. REMAINS SEDATED ON PROPOFOL GTT AT 40 MCG/KG/MIN, VERSED AT 12MG/HR. RASS-4. LEVOPHED GTT AT 5 MCG/MIN, CARDIZEM AT 5 MG/HR. BICARB INFUSING AT 125 ML/HR. K+ RIDER 40 MEQ HUNG PER ORDERS.
--- NOTE | 2021-12-08 07:50 | NUR ---
CHEST XRAY DONE. SUCTIONED ORAL AND ETT. ASSESSMENT DONE. HOB ELEVATED. LEVOPHED GTT DECREASED TO 2.5 MCG/MIN. MONTAGUE CATH PATENT WITH CLEAR YELLOW URINE NITED.
--- NOTE | 2021-12-08 08:20 | NUR ---
ABGS DRAWN. PATIENT REPOSITIONED.
--- NOTE | 2021-12-08 08:40 | NUR ---
LEVOPHED GTT OFF. WILL CONTINUE TO MONITOR BP.
--- NOTE | 2021-12-08 08:44 | NUR ---
ABG RESULTS, PH-7.50, PCO2-36.0, PO2-57,HCO3-27,SAT-92.6. LEVOPHED GTT TO OFF.
--- NOTE | 2021-12-08 09:00 | NUR ---
ROUTINE MEDICATIONS GIVEN. REMAINS SEDATED. K RIDER CONTINUE TO INFUSE. IVF NOW INFUSING AT 100 ML/HR.
--- NOTE | 2021-12-08 10:00 | NUR ---
CARDIZEM GTT TO OFF. REMAINS IN SR WITH CONTROLLED VENT RESPONSE.
--- NOTE | 2021-12-08 10:40 | NUR ---
AM CARES GIVEN AND BED LINEN CHANGED. TOLERATED WELL. DR. BERRIOS HERE TO SEE PATIENT. PLAN FOR TODAY ACCORDING TO DR. HINDS IS TO KEEP PATIENT SEDATED AND ON VENT. POSITIONED TO RIGHT SIDE. ORAL CARE GIVEN. ORAL SECRETIONS SUCTIONED.
--- NOTE | 2021-12-08 15:52 | NUR ---
Harvey AMADO RN IN ROOM PLACING PICC LINE.
--- NOTE | 2021-12-08 16:00 | NUR ---
PICC LINE PLACED BY Harvey AMADO RN, AWAITING CXRAY.
--- NOTE | 2021-12-08 16:30 | NUR ---
JAMEELAY GIVEN BY Harvey AMADO RN TO USE TRIPLE LUMEN PICC. IV SITES TO LAC AND L ANDRÉS DC'D. IV SITES TO RIGHT ARM REMAINS PATENT.
--- NOTE | 2021-12-08 16:41 | NUR ---
PICC INSERTION NOTE. ORDERS RECIEVED TO EVALUATE CAMERON FOR POSSIBLE PICC INSERTION. AFTER REVIEWING THE CHART AND INTERVIEWING THE PATIENT, NO ABSOLUTE CONTRAINDICATIONS WERE FOUND. THE PATIENT IS INTUBATED AND SEDATED AND NO FAMILY ARE AVAILABLE TO GIVE CONSENT. cONSENT IS IMPLIED AND GIVEN BY DR BERRIOS WELL. CAMERON WOULD BENIFIT FROM A PICC HE CURRENTLY HAS 4 IV'S ONE OF WHICH IS IN HIS FOOT WHILE REQUIREING FREQUENT LAB DRAWS, IS COVID POSITIVE, AND HAS MULTIPLE IV MEDICATIONS. THE LEFT ARM IS EVALUATED WITH SITE SEE U/S AND THE LEFT BASILIC VEIN IS LARGE ENOUGH TO ACCEPT A 5 FR PICC WHICH WILL TAKE UP 38% OF THE VEIN - THIS MEASUREMENT WAS CALCULATED WITHOUT THE USE OF A TURNIQUET. THE ARM WAS PREPPED AND DRAPED AND THERE WERE NO DIFFICULTIES WITH IV ACCESS OR AVANCEMENT OF THE GUIDEWIRE, INTRODUCER, NOR PICC. SHERLOCK TPS AND 3CG WERE USED TO CONFIRM CENTRAL ACCESS AND APPROACH TO THE RIGHT ATRIUM WAS APPRECIATED WITH P WAVE ENLARGEMENT. A SINGLE CXR WAS TAKEN AND WE AWAIT THE RESULT OF THIS PRIOR TO USING THE LINE.
--- NOTE | 2021-12-08 18:10 | NUR ---
DR. BERRIOS AWARE OF MOST RECENT LABS. PATIENT REPOSITIONED TO LEFT SIDE, UPON REPOSITIONING HAS INCREASE COUGH. SUCTIONING DONE.
--- NOTE | 2021-12-08 18:30 | NUR ---
REPOSITIONED TO BACK O2 SATS DOWN TO 86, PATIENT SUCTIONED. WITH SUCTIONING AND REPOSITIONING O2 SAT UP TO MID 90. PROPOFOL 40 MEQ/KG/MIN INFUSING, VERSED 8 MG/HR INFUSING FOR SEDATION. [place] PATENT. OG TUBE IN PLACE. VENT SETTING SAME.
--- NOTE | 2021-12-08 18:59 | NUR ---
Zen KOVACS HUNG PER ORDERS. REPORT TO NEXT SHIFT.
--- NOTE | 2021-12-08 19:30 | NUR ---
PATIENT REPORT RECIEVED FROM HEIDI STEWART. VENT SETTINGS FOLLOWS, CMV 16, VT 640, FI02 30%, PEEP 5.0. BREATHING EQUAL AND UNLABORED. ETT TUBE 7.5 AND 28 CM AT THE LIP.
--- NOTE | 2021-12-08 20:00 | NUR ---
PATIENT ASSESSMENT COMPLETE. MEDICATIONS GIVEN ORDERED. PATIENT RASS SCORE -3, -4. LUNG SOUNDS ARE CLEAR THROUGHOUT. VENT SETTINGS CMV 16, VT 640, FI02 30% PEEP, 5.0. BREATHING EQUAL AND UNLABORED. HEART RATE 70-80 SINUS RHYTHM. AFEBRILE. URINE OUTPUT LIGHT GREEN, YELLOW AND CLEAR. NO BM BOWEL TONES HYPOACTIVE. RESTRAINT CARE COMPLETE. ROM COMPLETE. PULSES FELT STRONG. REPOSITIONED, SKIN INTACT. IV SITES AND PICC PATENT. PATIENT STILL STIFF IN BLE. BLE AND BILATERAL HAND EDEMA.
--- NOTE | 2021-12-08 22:00 | NUR ---
PATIENT RESTRAINT CARE COMPLETE. ROM COMPLETE. ORAL CARE AND SECRETIONS SUCTIONED. REPOSITIONED TO RIGHT SIDE. EXTERMITIES ELEVATED WITH PILLOWS.
--- NOTE | 2021-12-09 | NUR ---
PATIENT ASSESSMENT COMPLETE. PROPOFOL RUNNING AT 40 MCG/KG/MIN, VERSED RUNNING AT 8 MG/HR. NS RUNNING AT 75 MLS/HR. PATIENT RASS SCORE -3, -4. LUNG SOUNDS ARE CLEAR THROUGHOUT. BREATHING EQUAL AND UNLABORED. VENT SETTINGS VT 640, PEEP 5.0, FIO2 30%, CMV 16. ORAL CARE AND SUCTION COMPLETE. RESTRAINT CARE AND ROM. PULSES FELT STRONG. PATIENT REPOSITIONED IN BED. URINE GREEN, YELLOW AND CLEAR. NO BM. BOWEL TONES ACTIVE. CMST INTACT. PATIENT STILL STIFF. PUPILS PIN POINT 1 MM SLUGGISH REACTION. SKIN INTACT. PLAN OF CARE UPDATED.
--- NOTE | 2021-12-09 02:00 | NUR ---
PATIENT RESTRAINT CARE COMPLETE. ROM COMPLETE. PATIENT REPOSITIONED. PULSES FELT STRONG.
--- NOTE | 2021-12-09 04:00 | NUR ---
PATIENT ASSESSMENT COMPLETE. PROPOFOL RUNNING 40 MCG/KG/MIN, VERSED RUNNING AT 8 MG/HR. NS RUNNING AT 75 MLS/HR. RASS SCORE BETWEEN A -4, -3. LUNG SOUNDS ARE CLEAR THROUGHOUT. RR WNL. VENT SETTINGS VT 640, PEEP 5.0, FIO2 30%, CMV 16. BREATHING EQUAL AND UNLABORED. ORAL CARE COMPLETE. ORAL SECRETIONS SUCTIONED. HEART RATE 70-80 BPM SINUS RHYTHM. LOW GRADE FEVER 99.0. URINE OUTPUT GREEN, YELLOW AND CLEAR. NO BM BOWEL TONES HYPOACTIVE. SKIN INTACT. PULSES FELT STRONG. EDEMA IN THE BILATERAL HANDS. PLAN OF CARE UPDATED.
--- NOTE | 2021-12-09 06:00 | NUR ---
PATIENT RESTRAINT CARE COMPLETE. ROM COMPLETE. REPOSITIONED. PULSES FELT STRONG.
--- NOTE | 2021-12-09 07:31 | NUR ---
REPORT RECIEVED. REMAINS ON VENT, TV-640,FIO2-30,CMV-16,PEEP-5. SEDATION, PROPOFOL 40 MCG/KG/MIN, VERSED 8 MG/HR. IVF NS 75 ML/HR. MONTAGUE CATH PATENT. ORAL GASTRIC TUBE TO LCS, SECRETIONS ARE GREEN IN COLOR. HOB ELEVATED. ORAL AND ETT SUCTIONING DONE. ORAL CARE COMPLETED.
--- NOTE | 2021-12-09 07:39 | NUR ---
PER CHART REVIEW PATIENT REMAINS INTUBATED. WILL ASSESS FOR DISCHARGE NEEDS WHEN ABLE.
--- NOTE | 2021-12-09 07:42 | NUR ---
PT DEMANDING COFFEE. PROVIDED PT WITH COFFEE FLAVORED WITH CREAM AND TRUVIA. PT SPILLS COFFEE ON FLOOR. ATTEMPTING TO CONVINCE PATIENT HE WILL BENIFIT FROM A DRESSING CHANGE. OLD DRESSING IS PART WAY REMOVED. MD ENTERS ROOM AT 0745. PT BECOMES MORE COMPLIANT. IT IS NOTED THAT THE PT IS AGAIN SITTING IN SOILED LINEN / CHUX AND IS INCONTINENT OF STOOL.
--- NOTE | 2021-12-09 08:16 | NUR ---
DRESSING AND LINNEN CHANGE. OLD PACKING IS EASILY REMOVED. WOUND SIDE SEAM MACHINE OPERATOR IS SPRAYED DIRECTLY INTO THE WOUND AND EDGES OF THE WOUND. STERILE GAUZE IS USED TO CLEAN ALL SURFACES OF THE WOUND TWICE. NO AREAS OF FRESH BLEEDING ARE NOTED DESPITE CLEANING. AN ENTIRE ROLL OF ROLL GAUZE IS MOISTENED WITH STERILE SALINE AND CAREFULLY PACKED INTO THE WOUND. THE WOUND IS THEN COVERED WITH STERILE GAUZE AND AN ABD AND TAPED IN PLACE.
--- NOTE | 2021-12-09 08:22 | NUR ---
THE PATIENT IS ROLLED IN BED AND COPIOUS LIQUID STOOL IS CLEANED FROM THE PATIENTS HARJIT AREA. BLANCHABLE AREAS OF REDNESS ARE SEEN ON THE HARJIT AREA. SKIN PROTECTANT IS APPLIED AFTER CLEANING WITH WIPES AND WARM WATER. THE SCROTUM AND PENIS ARE SWOLLEN. A PILLOWCASE IS PLACED UNDER THESE TO PROVIDE ELEVATION TO THE GENITALIA AND RELIEF TO THE SKIN. BARRIER CREAM IS APPLIED UNDER THE PANUS.
--- NOTE | 2021-12-09 08:25 | NUR ---
BEGINNING TO LIGHTEN SEDATION IN ATTEMPT TO EXTUBATE. SEE EMAR FOR TITRATION. ABGS DRAWN BY RT.
--- NOTE | 2021-12-09 08:44 | NUR ---
OFF ALL SEDATION AT THIS TIME.
--- NOTE | 2021-12-09 09:15 | NUR ---
DR. BERRIOS IN ROOM. PATIENT ON CPAP MODE, OFF SEDATION.
--- NOTE | 2021-12-09 09:30 | NUR ---
ON CPAP MODE ON VENT. WILL OPEN EYES BUT NOT ON COMMAND. WILL NOT FOLLOW DIRECTIONS. HAS HARSH COUGH WITH COPIOUS AMOUNT OF CLEAR ORAL SECRETIONS. FREQUENT SUTIONING DONE. RN IN ROOM WITH PATEINT THROUGH THIS PERIOD.
--- NOTE | 2021-12-09 09:45 | NUR ---
REMAINS OF SEDATION. NOT FOLLOEING DIRECTION. DR. BERRIOS AWARE.
--- NOTE | 2021-12-09 09:50 | NUR ---
BACK ON VENT SAME SETTINGS PATIENT HAS NOT FOLLOWED COMMANDS SINCE OFF SEDATION. HAS BEEN OFF SEDATION FOR APPROX ONE HOUR AND 20 MINS. BACK ON FULL SUPPORT ON VENT PER MD ORDERS. K+ HUNG PER ORDERS. NOW ON PROPOFOL 50 MCG/KG/MIN AND VERSED GTT AT 6 MG/HR.
--- NOTE | 2021-12-09 12:00 | NUR ---
ASSESSMENT DONE. NO CHANGES. CONTINUES WITH FREQUENT SUCTIONING.
--- NOTE | 2021-12-09 12:18 | NUR ---
oral care completed and ett moved to center position of mouth. airway secure wob ok bvm at bedside. bbs clear.
--- NOTE | 2021-12-09 14:12 | NUR ---
CONNECTED WITH HEIDI STEWART REGARDING PT. SHE INFORMED ME THAT SHE IS A LITTLE MORE ENCOURAGED TODAY. WEANED MOMENTARILY OFF VENT, BUT FELT NOT QUITE READY YET. WILL FOLLOW
--- NOTE | 2021-12-09 16:00 | NUR ---
NO FUTHER CHANGES. ASSESSMENT DONE. FREQUENT ORAL CARE DONE. PICC LINE INTACT WITH ALL PORT USED AT THIS TIME.
--- NOTE | 2021-12-09 18:53 | NUR ---
HAVING COUGHING SPELL, PROPOFOL INCREASED TO 50 MG/KG/MIN. VERSED GTT REMAINS AT 5 MG/HR.
--- NOTE | 2021-12-09 19:00 | NUR ---
REPORT TO NEXT SHIFT. REMAINS ON VENT NO CHANGE IN SETTINGS, NO CHANGE IN SEDATION. IVF INFUSING AT 75 ML/HR.
--- NOTE | 2021-12-09 20:00 | NUR ---
SHIFT REPORT RECEIVED FROM HEIDI STEWART. ASSESSMENT COMPLETED. PT SEDATED, RASS -3, PERRLA, CPOT 0. LUNGS CLEAR, SLIGHTLY COARSE IN BASES, VENT: CMV, RR:16, VT:640, PEEP:5, FIO2:30%, PT TOLERATING VENT WELL. ORAL CARE PROVIDED, ETT REPOSITIONED TO RIGHT SIDE OF MOUTH. MINIMAL WHITE SECRETIONS NOTED FROM ETT, LARGE AMOUNT OF CLEAR SECRETIONS SUCTIONED FROM MOUTH. HR REGULAR. BOWEL TONES HYPOACTIVE, OG TO L.I.S. WITH GREEN OUTPUT NOTED. SKIN GROSSLY INTACT, SCRATCHES NOTED TO LEFT FOREARM, DEPENDENT EDEMA NOTED TO HANDS/ARMS, PULSES STRONG. RESTRAINTS TO WRISTS REMOVED FOR ROM AND REPLACED, CMS INTACT. [place] PATENT, CATH CARE PROVIDED. IV SITES INTACT, PICC TO LEFT UPPER ARM HAS BLOOD RETURN IN ALL 3 LUMENS, FLUSHES EASILY, INFUSING WNL. NO REDNESS/SWELLING NOTED AT SITE, DRESSING C/D/I. PT CURRENTLY SEDATED WITH PROPOFOL @ 50 MCG/KG/MIN AND VERSED @ 5 MG/HR. PT REPOSITIONED TO RIGHT SIDE WITH PILLOW SUPPORT.
--- NOTE | 2021-12-09 22:00 | NUR ---
RESTRAINTS RELEASED FOR ROM AND REPLACED. PT REPOSITIONED TO SUPINE WITH EXTREMITIES ELEVATED ON PILLOWS. ORAL SUCTIONING PROVIDED, SCANT AMOUNT OF SECRETIONS AT THIS TIME. SEDATION AND VENT SETTINGS UNCHANGED.
--- NOTE | 2021-12-09 22:50 | NUR ---
PT COUGHING/GAGGING ON VENT, RASS+2. PRN VALIUM ADMINSTERED AND ORAL SUCTIONING OF COPIOUS CLEAR SECRETIONS PROVIDED. NEW BOTTLE OF PROPOFOL HUNG.
--- NOTE | 2021-12-10 | NUR ---
ORAL CARE PROVIDED, INCLUDING SUCTIONING. ETT MOVED TO CENTER MOUTH. PT REPOSITIONED TO LEFT SIDE WITH PILLOW SUPPORT. RESTRAINTS REMOVED FOR ROM AND REPLACED. ASSESSMENT COMPLETED AND UNCHANGED. SEDATION AND VENT SETTINGS UNCHANGED.
--- NOTE | 2021-12-10 02:00 | NUR ---
PT REPOSITIONED TO SUPINE, EXTREMITIES ELEVATED ON PILLOWS. RESTRAINTS RELEASED FOR ROM AND REPOSITIONED, CMS REMAINS INTACT. ORAL SUCTIONING PROVIDED, MINIMAL OUTPUT AT THIS TIME.
--- NOTE | 2021-12-10 04:00 | NUR ---
PT REPOSITIONED TO RIGHT SIDE WITH PILLOW SUPPORT. RESTRAINTS REMOVED FOR ROM AND REPLACED, CMS REMAINS INTACT. ORAL CARE PROVIDED, MODERATE AMOUNT OF CLEAR SECRETIONS SUCTIONED FROM MOUTH, ETT MOVED TO LEFT SIDE OF MOUTH. LUNGS SOUND COARSE THROUGHOUT, OTHERWISE ASSESSMENT IS UNCHANGED. SEDATION AND VENTILATOR SETTINGS UNCHANGED. IV SITES REMAIN WNL.
--- NOTE | 2021-12-10 06:00 | NUR ---
PT REPOSITIONED TO SUPINE, EXTREMITIES ELEVATED ON PILLOWS. RESTRAINTS REMOVED FOR ROM AND REPOSITIONING, THEN REPLACED. ORAL SUCTIONING PROVIDED, SCANT AMOUNT OF SECRETIONS AT THIS TIME. MONTAGUE REMAINS PATENT. VITAL SIGNS STABLE. SEDATION AND VENTILATOR SETTINGS UNCHANGED.
--- NOTE | 2021-12-10 06:56 | EKG ---
[facility] [address] [place] [address] \T\ T wave abnormality, consider inferior ischemia ST \T\ T wave abnormality, consider anterolateral ischemia Abnormal ECG When compared with ECG of 06-DEC-2021 19:33, Vent. rate has increased BY [address] now depressed in Anterolateral leads T wave inversion more evident in Anterior leads Confirmed by IZZY BERRIOS MD ([id number]) on 12/10/2021 6:56:43 AM Electronically Signed By: IZZY BERRIOS MD 12/10/21 0656 PATIENT NAME: CAMERON ARMIJO Electrocardiogram DATE OF : [birth year] PHYSICIAN: IZZY BERRIOS MD REPORT #: [id number] REPORT IS CONFIDENTIAL AND NOT TO BE RELEASED WITHOUT AUTHORIZATION
--- NOTE | 2021-12-10 07:35 | NUR ---
REPORT RECIEVED. VERSED DECREASED TO 2 MG/HR.
--- NOTE | 2021-12-10 07:45 | NUR ---
ASSESSMENT DONE. REMAINS ON VENT AT TV-640, FIO2-30, CVM-16. PEEP-5, PIP-20, ETCO2-30. RT HERE AND MOVED ETT TO 28 AT THE LIP. [place] CATH PATENT WITH GREEN URINE NOTED. OGT PATENT TO LIS. WRIST RESTRAINTS ON. HOB ELEVATED. ORAL/ETT SUCTION AND ORAL CARE DONE.
--- NOTE | 2021-12-10 09:49 | NUR ---
PER AM MD MEETING PATIENT REMAINS INTUBATED AT THIS TIME. STAFF TO PREFORM WAKE TRIAL AGAIN TODAY. WILL CHECK IN WITH CCU STAFF FOLLOWING WAKE TRAIL FOR FURTHER UPDATE.
--- NOTE | 2021-12-10 10:00 | NUR ---
ALL SEDATION OFF. PATIENT NOT FOLLOWING COMMANDS CONSISTENTLY, WILL OCC SQUEEZE HAND. HAS VERY HARSH COUGH WITH COPIUS AMOUNTS OF CLEAR ORAL SECRETIONS. IS ON CPAP MODE.
--- NOTE | 2021-12-10 10:20 | NUR ---
Called Aleena at [facility] and requested to know if Carlos is their pt. She was able to verify an emergency contact for this patient. Dr. Cash in my office and called pts Adoptive father, Paulie Lockwood. Biological father is Paulie Fernandez [phone] Nikko [phone]. Current girlfriend is Torres [phone]. Per Paulie he is willing to make medical decisions for this pt if needed. He also states information may be released to the biological father.
--- NOTE | 2021-12-10 10:20 | NUR ---
PER MEREDITH AND TERRY RN IN CCU PATIENT FATHER CALLING FOR UPDATE. DR. BERRIOS NOTIFIED. ATTEMPTED TO CONTACT THE PATIENT FATHER, NO ANSWER, LM TO RETURN CALL.
--- NOTE | 2021-12-10 11:15 | NUR ---
BACK ON SEDATION. WILL NOT EXTUBATE TODAY. WILL GIVE SEROQUEL VIA ORAL GASTRIC TUBE. PROPOFOL AT 50 MG/KG/MIN. VERSED GALI'Tre.
--- NOTE | 2021-12-10 12:45 | NUR ---
HAVING SEVERE COUGHING EPISODE. PROPOFOL INCREASED TO 50 MDC/KG/HR. ATIVAN 2 MG IV GIVEN. REPOSITIONED.
--- NOTE | 2021-12-10 14:28 | NUR ---
CHECKED WITH HEIDI MAC-BASICALLY NO CHANGE IN PT'S CONDITION. TRIED WAKE TRIAL EARLIER-PT NOT READY. WILL CONTINUE TO FOLLOW
--- NOTE | 2021-12-10 16:00 | NUR ---
CONTINUES TO HAVE SEVERE COUGHING EPISODE. IS VERY DIFFICULT TO CONTROL. PROPOFOL INCREASED FRON 10 MG/KG/MIN TO 50 AND ATIVAN 2 MG IV REPEATED. CONTINUES WITH COPIOUS AMOUNTS OF ORAL SECRETIONS. ASSESSMENT DONE.
--- NOTE | 2021-12-10 16:08 | NUR ---
Called Dr. Patel's office and spoke with Jazlyn. She states they saw pt in 2015 and then once in . Pt was angry with them and has not returned. She will send what notes she has.
--- NOTE | 2021-12-10 18:47 | NUR ---
IS RESTFUL ON VENT AT THIS TIME, HOWEVER HAS HAS FREQUENT PERIODS OF SEVERE COUGHING REQUIRING INCREASING SEDATION. IS CURRENTLY ON PROFOLOL AT 60 MCG/KG/MIN. PRN ATIVAN AND PRN VALIUM. VENT SETTINGS TV-640, PEEP-5, FIO2-30, CMV-16, PIP-27, ETCO2-27. [place] CATH IN PATENT. OGT TO LIS.
--- NOTE | 2021-12-10 19:46 | NUR ---
REPORT RECEIVED ON DAYSHIFT RN, WILL CONTINUE PLAN OF CARE.
--- NOTE | 2021-12-10 20:50 | NUR ---
RT IN THE ROOM WITH THE PT. PT IN BED ON THE VENTILATOR, SPO2 99%. ET TUBE REPOSITIONED BY RT AT THIS TIME AND IS NOW 28CM AT THE LIP. PT IN NO APPARENT DISTRESS AT THIS TIME RASS -4 PT RESPONDS TO PHYSICAL STIMULI WHILE ASSESSING PT BUT DOES NOT FOLLOW COMMANDS OR AWAKE TO VOICE. PROPOFOL INFUSING AT 70 MCG/KG/MIN, IVF INFUSING ORDERED AT 75ML/HR. PT VITALS TAKEN AND PT ASSESSED (SEE CHART). LUNGS CLEAR THROUGHOUT, BREATH SOUNDS EQUAL ON BOTH SIDES, ACTIVE BOWEL TONES PRESENT IN ALL 4 QUADRANTS. SOFT WRIST RESTRAINTS PRESENT BILATERALLY, CMS INTACT, STRONG RADIAL PULSES PRESENT, BRISK CAPILLARY REFILL PRESENT. STRONG PEDAL PULSES PRESENT. SCHEDULED MEDICATIONS ADMINISTERED AT THIS TIME, OG TUBE WHICH WAS SET TO LOW SUCTION NOW CLAMPED AFTER ADMINISTERED SEROQUEL (SEE MAR). CONTENTS IN TUBE PRIOR TO CLAMPING WAS GREEN. PT REPOSITIONED TO HIS RIGHT SIDE WITH PILLOWS UNDERNEATH. NO FURTHER NEEDS ASSESSED AT THIS TIME, WILL CONTINUE PLAN OF CARE.
--- NOTE | 2021-12-10 22:28 | NUR ---
PT LAYING IN BED ON THE VENTILATOR AND APPEARS TO BE IN NO APPARENT DISTRESS. PROPOFOL AND IVF INFUSING AT PREVIOUS RATES. SCHEDULED ZOSYN STARTED AND NOW INFUSING WELL (SEE MAR). CMS ASSESSED ON HANDS AND IS INTACT. STRONG PULSES AND BRISK CAPILLARY REFILL PRESENT. VITALS TAKEN (SEE CHART), PT REPOSITIONED OVER TO HIS LEFT SIDE WITH ASSISTANCE. RASS STILL -4, PT PROPOFOL TITRATED DOWN TO 60 MCG/KG/MIN. NO FURTHER NEEDS ASSESSED AT THIS TIME, WILL CONTINUE PLAN OF CARE.
--- NOTE | 2021-12-11 00:10 | NUR ---
RT IN ROOM TO ASSESS PT. ORAL CARE DONE BY RT AND ET TUBE SECURMENT ASSESSED BY RT, NO CHANGES TO THE VENTILATOR AT THIS TIME, WILL CONTINUE PLAN OF CARE.
--- NOTE | 2021-12-11 00:42 | NUR ---
PT LAYING IN BED ON THE VENTILATOR AT THIS TIME, PROPOFOL INFUSING AT 60 MGC/KG/MIN. IVF INFUSING ORDERED, ZOSYN INFUSING ORDERED. PT VENT SETTINGS UNCHAGED, SPO2 98-100%. VITALS TAKEN, ASSESSMENT COMPLETED AT THIS TIME. FINE CRACKLES HEARD IN UPPER LOBES BILATERALLY AND DIMINISHED IN THE BASES, PT ORAL AND IN LINE SUCTIONED AT THIS TIME. PT REPOSITIONED AFTERWARDS WITH ASSISTANCE FROM HEIDI ANTONIO. NO FURTHER NEEDS ASSESSED AT THIS TIME, WILL CONTINUE PLAN OF CARE.
--- NOTE | 2021-12-11 01:27 | NUR ---
PT LAYING IN BED ON THE VENTILATOR, RASS -4. PROPOFOL TITRATED DOWN TO 50 MCG/KG/MIN AT THIS TIME. NO FURTHER NEEDS ASSESSED A THIS TIME, IVF AND IV ABX INFUSING ORDERED, WILL CONTINUE PLAN OF CARE.
--- NOTE | 2021-12-11 01:42 | NUR ---
NEW BOTTLE OF PROPOFOL STARTED AT THIS TIME AT PREVIOUS RATE OF 50 MCG/KG/MIN, PT IN NO APPARENT DISTRESS AT THIS TIME, NO NEEDS ASSESSED, WILL CONTINUE PLAN OF CARE. VENTILATOR SETTINGS UNCHANGED, SPO2 98%.
--- NOTE | 2021-12-11 01:56 | NUR ---
PT'S HEART RATE NOTED TO BE MAINTAINING AT 42-45 BPM, VITALS TAKEN. DR. BERRIOS NOTIFIED OF PT'S BRADYCARDIA, ORDERS GIVENT TO TITRATE PROPOFOL DOWN TOLERATED AND ADMINISTER ATIVAN IF PT BECOMES RESTLESS. PROPOFOL DRIP TITRATED DOWN TO 40 MCG/KG/MIN. VENT SETTINGS UNCHANGED, SPO2 98-100%, PT IN NO APPARENT DISTRESS, WILL CONTINUE PLAN OF CARE.
--- NOTE | 2021-12-11 02:14 | NUR ---
PT RESTLESS WHILE ON THE VENTILATOR, HEAD NODDING UP, PT COUGHING, WRIST RESTRAINED BUT PT REACHING UP TOWARD ET TUBE. PROPOFOL DRIP INCREASED BACK UP TO 50MCG/KG/MIN, RT NOTIFIED AT THIS TIME TO ASSESS PT. RN LUIS F IN LINE SUCTION AND ORAL SUCTIONED PT. PT NOW RESTING IN BED IN NO APPARENT DISTRESS RASS -2 TO -3 AT THIS TIME. RT IN TO ASSESS PT, VENT SETTINGS LEFT UNCHANGED. NO FURTHER NEEDS ASSESSED AT THIS TIME, NEW BAG OF NS STARTED AND NOW INFUSING AT ORDERED RATE, WILL CONTINUE PLAN OF CARE.
--- NOTE | 2021-12-11 02:47 | NUR ---
PT LAYING IN BED RESTING ON THE VENTILATOR AT THIS TIME, PROPOFOL, ZOSYN, AND IVF INFUSING AT PREVIOUS RATES. VENT SETTINGS UNCHANGED, SPO2 99%. PT HEAD REPOSITIONED AT THIS TIME IT WAS TILTING TO THE LEFT, PILLOW AND DRAW SHEET PLACED TO SUPPORT HEAD/NECK ON THE LEFT SIDE. CMS ASSESSED AT THIS TIME ON BOTH WRISTS BILATERALLY. CMS INTACT, STRONG PULSES AND BRISK CAPILLARY REFILL PRESENT. PT RASS -4 AT THIS TIME. PT IN NO APPARENT DISTRESS AT THIS TIME, NO FURTHER NEEDS ASSESSED, WILL CONTINUE PLAN OF CARE.
--- NOTE | 2021-12-11 03:47 | NUR ---
PT RESTING IN BED AT THIS TIME ON THE VENTILATOR, SETTINGS UNCHANGED, HEIDI KERNS IN ROOM AND INFORMED THIS RN THE PT HAD BECOME RESTLESS AND HAD RECEIVED VALIUM AND HAD HIS PROPOFOL INCREASED (SEE EMAR/NOTE). PT IN NO APPARENT DISTRESS LAYING IN BED, SPO2 96%. PT REPOSITIONED AT THIS TIME WITH HELP FROM HEIDI KERNS AND PACO. HEAD SUPPORTED WITH PILLOWS. RESTRAINTS RELEASED AND REPOSITIONED. CMS INTACT, PT ASSESSMENT COMPLETED, VITALS TAKEN (SEE CHART). NO FURTHER NEEDS ASSESSED, WILL CONTINUE PLAN OF CARE. PROPOFOL INFUSING AT 60 MCG/KG/MIN, NS INFUSING ORDERED, IV ABX COMPLETED.
--- NOTE | 2021-12-11 04:03 | NUR ---
RT CALLED THIS RN, PT RESTLESS IN BED. RESTRAINTS RETIED PT HAD REACHED FOR ET TUBE. 3MG PRN ATIVAN ADMINISTERED. PT NOW RESTING, RT STATED PT BECAME RESTLESS WHEN DOING ORAL CARE/SUCTIONING. PT NO LONGER IN ANY APPARENT DISTRESS. CMS ASSESSED AND IS INTACT, PT IN NO APPARENT DISTRESS, WILL CONTINUE PLAN OF CARE. IVF INFUSING, PROPOFOL INFUSING AT PREVIOUS RATES.
--- NOTE | 2021-12-11 04:45 | NUR ---
IV PUMP ALARMING, PROPFOL ALMOST COMPLETED, NEW BOTTLE STARTED AT THIS TIME AND IS INFUSING AT PREVIOUS RATE OF 60MCG/KG/MIN. IVF INFUSING ORDERED. PT NO NO APPARENT DISTRESS, VENTILATOR SETTINGS UNCHANGED, SPO2 94%. NO FURTHER NEEDS ASSESSED AT THIS TIME, WILL CONTINUE PLAN OF CARE.
--- NOTE | 2021-12-11 06:10 | NUR ---
LABS DRAWN AT THIS TIME VIA PICC LINE. PT IN BED ON THE VENTILATOR, SETTINGS UNCHANGED. SCHEDULED ZOSYN ADMINISTERED AND NOW INFUSING ORDERED. PT HEAD REPOSITIONED AND PT BECAME RESTLESS. PT PROPOFOL INCREASED TO 70 MCG/KG/MIN DURING THIS TIME AND IS NOW INFUSING AT THAT RATE. PT NOW RESTING IN BED IN NO APPARENT DISTRESS. CMS ASSESSED AND IS INTACT WITH WRIST RESTRAINTS ON BILATERALLY. PULSES STRONG, CAPILLARY REFILL BRISK. NO FURTHER NEEDS ASSESSED AT THIS TIME, WILL CONTINUE PLAN OF CARE.
--- NOTE | 2021-12-11 07:13 | NUR ---
DR. BERRIOS NOTIFIED OF PT'S CRITICAL CALCIUM OF 6.0. NEW ORDERS TO BE PLACED, WILL CONTINUE PLAN OF CARE.
--- NOTE | 2021-12-11 07:36 | NUR ---
REPORT RECIEVED, CARE OF PATIENT ASSUMED AT THIS TIME. PT RESTING WITH EYES CLOSED ON VENT. PROPOFOL INFUSING AT 70 MCG/KG/MIN. IV ABX INFUSING WELL (SEE EMAR). THIS RN AT BEDSIDE
--- NOTE | 2021-12-11 07:45 | NUR ---
ASSESSMENT AND MEDICATION ADMINISTRATION COMPLETED. PT RASS SCORE OF -1 INITIALLY. WHILE COMPLETING MEDICATION ADMINISTRATION. PT BEGAN COUGHING AGAINST THE TUBE, SITTING UP, PULLING ON WRIST RESTRAINTS, AND THRASHING HEAD. 2 MG IV ATIVAN GIVEN (SEE EMAR). PROPOFOL CONTINUES TO INFUSE AT 70 MCG/KG/MIN. LUNGS SOUND CLEAR THROUGHOUT. RT NOW IN ROOM WITH PT.
--- NOTE | 2021-12-11 08:37 | NUR ---
WHILE RT IS IN ROOM, PT AGAIN BEGAN THRASHING HEAD, PRN ATIVAN GIVEN. RT REMAINS AT BEDSIDE.
--- NOTE | 2021-12-11 09:02 | NUR ---
SPO2 = 85 % ON BENT SETTINGS. ORAL AND ET TUBE SUCTIONING COMPLETED AND SPO2 BACK UP TO 94% ON VENTILATOR. PIP=18, FIO2= 30% TV= 640, RR=16. PROPOFOL TITRATED DOWN TO 60 MCG/KG/MIN AT THIS TIME. THIS RN REMAINS AT PT BEDSIDE.
--- NOTE | 2021-12-11 09:44 | NUR ---
2 MG IV ATIVAN GIVEN AND PROPOFOL DRIP TITRATED DOWN TO 50 MG/KG/MIN. IV POTASSIUM, ABX AND FLUIDS CONTINUE TO INFUSE. THIS RN REMAINS AT BEDSIDE.
--- NOTE | 2021-12-11 10:25 | NUR ---
TITRATING PROPOFOL DOWN AT THIS TIME PLANNED WITH DR BERRIOS FOR SEDATION VACATION. THIS RN REMAINS AT BEDSIDE.
--- NOTE | 2021-12-11 10:38 | NUR ---
ORAL CARE COMPLETED. RESTRAINTS RELEASED AND PT REPOSTIONED WITH 2 RN.S WITH REPOSTIONING PT AWOKE AND STARTED COUGHING. SUCTIONING COMPLETE. PT NOW BACK TO A -1 RASS SCORE. TITRATED PROPOFOL DOWN TO 40 MCG/KG/MIN
--- NOTE | 2021-12-11 11:00 | NUR ---
PROPOFOL DRIP PLACED ON STAND BY AT THIS TIME.
--- NOTE | 2021-12-11 11:15 | NUR ---
RT AT BEDSIDE. PT FOLLOWING SOME COMMANDS. COUGHING, FREQUENT ORAL SUCTION REQUIRED. PLACED ON CPAP AT THIS TIME. SPO2 MAINTAINED IN THE MID 90S.
--- NOTE | 2021-12-11 11:20 | NUR ---
Update from RN, will attempt to decrease medication today. Per 829 report would like to begin process of finding an LTAC. Called [facility] and they have beds open, but no longer contract with [facility]. Called [facility], notified they are close to being full. Was sent to [facility] [phone]. Left a message requesting a bed and a return call. Received a return call from Debbie, she covers our area. States they do not take [facility]. Called and left a message for Christopher and requested return call.
--- NOTE | 2021-12-11 11:20 | NUR ---
Update from Rn. Will attempt to decrease medication today.
--- NOTE | 2021-12-11 11:35 | NUR ---
DR BERRIOS IN ROOM FOR ASSESSMENT. PT EXTUBATED AT THIS TIME BY RT SIMENTAL. THIS RN AT BEDSIDE DURING EXTUBATION. WELL TOLERATED BY PT.
--- NOTE | 2021-12-11 11:52 | NUR ---
PT MAINTAINING SPO2 GREATERE THAT 92 5 ON 4 L NC. PT OPENING EYES AND MOVING IN BED. ORAL SUCTIONING PROVIDED FOR SECRETIONS. PT NOW USING GARBLED WORDS. THIS RN REMAINS AT PT BEDSIDE.
--- NOTE | 2021-12-11 12:00 | NUR ---
DR. BERRIOS UPDATED ON PT'S AGGITATION AND AGRESSIVE BEHAVIOR. ORDERS FOR WRIST RESTRAINTS AND IM HALDOL RECIEVED. SECURITY REMAINS AT PT BEDSIDE. PT NOW ON Q15 MINUTE CHECKS FOR SUICIDE ATTEMPT.
--- NOTE | 2021-12-11 12:14 | NUR ---
PT NOW KICKING LEGS TRYING TO GET OUT OF THE BED. ATTEMPTING TO KICK THIS RN. SECURITY IN ROOM AT THIS TIME. PT PLACED BACK IN WRIST RESTRAINTS. 10 MG IV PRN VALIUM ADMINISTERED. THIS RN AND SECURITY AT BEDSIDE.
--- NOTE | 2021-12-11 13:16 | NUR ---
PT PLACED IN FOUR POINT HARD BEHAVIORAL RESTRAINTS PER MD ORDER. PT PULLING AT RESTRAINTS, ATTEMPTING TO SIT UP. NOT FOLLOWING VERBAL COMMANDS. THIS RN AND SECURITY REMAIN AT PT BEDSIDE.
--- NOTE | 2021-12-11 14:33 | NUR ---
PT IS EXTEBATED, SECURITY IN WITH PT. WILL FOLLOW NEEDED.
--- NOTE | 2021-12-11 15:25 | NUR ---
PT CONTINUES TO PULL AGAINST RESTRAINTS. TOLD PT HIS FATHER CALLED, PT STATES "FUCK HIM". IM MEDICATION GIVEN (SEE EMAR). PT REMAINS ON ONE TO ONE SUICIDE PRECAUTIONS AND IN FOUR POINT BEHAVIORAL RESTRAINTS.
--- NOTE | 2021-12-11 17:45 | NUR ---
PROPOFOL DRIP TITRATED UP TO 30 MCG/KG/MIN.2 MG OF IV ATIVAN GIVEN FOR AGGITATION. IV POTASSIUM INFUSING.
--- NOTE | 2021-12-11 18:20 | NUR ---
ANESTHESIOLOGIST, RT, AND SECURITY, AND THIS RN IN ROOM AT THIS TIME. PT INTUBATED AT THIS TIME. ET TUBE IS 26 AT THE GUMS, 7.5 INCH TUBE. VERIFIED BY CHEST XRAY. PROPOFOL DRIP STARTED AT 10 MCG/KG/MIN.
--- NOTE | 2021-12-11 18:50 | NUR ---
PRECEDEX TITRATED UP TO MAINTAIN RASS GOAL OF -1. PT WAS AGGITATED, KICKING LEGS OFF THE BED AND PULLING AT WRIST RESTRAINTS. PT REMAINS VISIBLE FROM NURSES STATION WILL CONTINUE TO MONITOR.
--- NOTE | 2021-12-11 19:30 | NUR ---
REPORT RECEIVED FROM ISAURO RN, WILL CONTINUE PLAN OF CARE.
--- NOTE | 2021-12-11 20:20 | NUR ---
RT IN PT'S ROOM DRAWING AN ABG. PT IN BED ON THE VENTILATOR AT THIS TIME, VC-AC MODE, RR 18, PEEP 5, FIO2 30%, VT 500, PIP 15, 26 AT THE GUMS. PT SPO2 99-100%. PT IN NO APPARENT DISTRESS AT THIS TIME. NEW BOTTLE OF PROPOFOL STARTED AND NOW INFUSING AT PREVIOUS RATE OF 40 MCG/KG/MIN. IVF AND IV POTASSIUM INFUSING AT ORDERED RATE (SEE MAR). WHILE RT PRECIOUS THE ABG, PT BECAME RESTLESS/AGITATED AND BEGAN TO MOVE HIS EXTREMITIES. 10MG PRN VALIUM ADMINISTERED AT THIS TIME FOR RESTLESSNESS/AGITATION (SEE MAR). ORAL SECRETIONS ALSO SUCTIONED AT THIS TIME. PT NOW RESTING IN BED AND IN NO APPARENT DISTRESS. PT RASS -4 PT DOES NOT RESPOND TO VOICE BUT EASILY AWAKES/BECOMES RESTLESS WITH PHYSICAL STIMULATION. HEAD AND EXTREMITIES REPOSITIONED BACK ON THE BED AT THIS TIME. VITALS THEN TAKEN AND PT ASSESSED (SEE CHART). LUNGS CLEAR THROUGHOUT, BOWEL TONES HYPOACTIVE, RADIAL AND PEDAL PULSES STRONG, CAPILLARY REFILL BRISK, SOFT WRIST RESTRAINTS ON BILATERALLY. [place] IN PLACE AND DRAINING CLEAR YELLOW URINE. PICC LINE IN USE, SITE WNL, LUMENS FLUSHING EASILY AND RETURN BLOOD. NO FURTHER NEEDS ASSESSED AT THIS TIME, PT IN BED ON THE VENTILATOR IN NO APPARENT DISTRESS, WILL CONTINUE PLAN OF CARE.
--- NOTE | 2021-12-11 21:21 | NUR ---
PT LAYING IN BED ON THE VENTILATOR AT THIS TIME. VENT SETTINGS UNCHANGED, SPO2 97%, RR 18. PROPOFOL INFUSING AT PREVIOUS RATE OF 40 MCG/KG/MIN, IVF AND IV POTASSIUM INFUSING AT ORDERED RATE (SEE MAR). PT IN NO APPARENT DISTRESS AND WAS LEFT UNDISTURBED, WILL CONTINUE PLAN OF CARE.
--- NOTE | 2021-12-11 22:57 | NUR ---
IV POTASSIUM COMPLETED, LUMEN ON PICC LINE SALINE LOCKED. PT RESTING IN BED ON THE VENTILATOR, SETTINGS UNCHANGED, SPO2 97%, RR 18. PT CMS CHECKED AND IS INTACT, PT REPOSITIONED ON THE BED WITH THE HELP OF RN EDDA, RESTRAINTS RETIED. PT IN NO APPARENT DISTRESS AT THIS TIME, NO FURTHER NEEDS ASSESSED, WILL CONTINUE PLAN OF CARE. PROPOFOL AND IVF INFUSING AT PREVIOUS RATES, M[place]UE DRAINING YELLOW/GREEN URINE.
--- NOTE | 2021-12-11 23:17 | NUR ---
PT NOTED TO BE RESTLESS IN BED ON THE VENTILATOR, PT ATTEMPTING TO COUGH AND MOVING LEGS AND ARMS UP. PT ORAL SUCTIONED AND PRN VALIUM GIVEN FOR RESTLESSNESS/AGITATION. TWO DOSES OF 10MG ADMINISTERED (TOTAL 20MG) PT WAS STILL RESTLESS AFTER THE FIRST DOSE OF 10MG. PT NOW RESTING IN BED AT THIS TIME IN NO APPARENT DISTRESS. PT ASSESSMENT COMPLETED (SEE CHART). LUNGS CLEAR IN UPPER AND LOWER LOBES BILATERALLY, BOWEL TONES HYPOACTIVE, RADIAL AND PEDAL PULSES STRONG, [place] DRAINING, PICC LINE PATENT AND IS FLUSHING AND PULLING BACK BLOOD, SITE WNL. NO FURTHER NEEDS ASSESSED AT THIS TIME, WILL CONTINUE PLAN OF CARE. IV PROPOFOL AND IVF INFUSING AT PREVIOUS RATES.
--- NOTE | 2021-12-12 00:33 | NUR ---
PT IS LIFTING HEAD UP, PULLING ARMS AT RESTRAINTS, 10MG IV VALIUM GIVEN.
--- NOTE | 2021-12-12 02:39 | NUR ---
PT LAYING IN BED ON THE VENTILATOR AT THIS TIME, SETTINGS UNCHANGED, SPO2 97-99%. PROPOFOL INFUSING AT PREVIOUS RATE ALONG WITH IVF. PT IN NO APPARENT DISTRESS AT THIS TIME. CMS ASSESSED AT THIS TIME AND IS INTACT, STRONG RADIAL PULSES PRESENT BILATERALLY, BRISK CAPILLARY REFILL PRESENT. AFTER ASSESSMENT PT WAS ORAL SUCTIONED AND INLINE SUCTIONED. PT BECAME RESTLESS, 10MG PRN VALIUM ADMINISTERED FOR PT'S RESTLESSNESS/AGITATION WHILE ON THE VENTILATOR. PT NOW RESTING AND IN NO APPARENT DISTRESS. NO FURTHER NEEDS ASSESSED, WILL CONTINUE PLAN OF CARE.
--- NOTE | 2021-12-12 03:26 | NUR ---
PT LAYING IN BED RESTLESS WHILE ON THE VENTILATOR. RN EVITA INCREASED PROPOFOL TO 50 MCG/KG/MIN, THIS RN ADMINISTERED 10MG OF PRN VALIUM. PT NOW RESTING IN BED AND NO LONGER IN ANY APPARENT DISTRESS. NO FURTHER NEEDS ASSESSED AT THIS TIME, WILL CONTINUE PLAN OF CARE. VENT SETTINGS UNCHANGED, SPO2 98-100%, RR 18. IVF AND PROPOFOL INFUSING.
--- NOTE | 2021-12-12 04:50 | NUR ---
PT LAYING IN BED IN NO APPARENT DISTRESS ON THE VENTILATOR, SETTINGS UNCHANGED, SPO2 96%, RR 18, ETCO2 28. VITALS TAKEN AND ASSESSMENT COMPLETED AT THIS TIME (SEE CHART). CMS ASSESSED AND IS INTACT, RADIAL PULSES STRONG, CAPILLARY REFILL BRISK, SOFT WRIST RESTRAINGS SECURE. PT LUNGS ASSESSED AND ARE CLEAR THROUGHOUT, HYPOACTIVE BOWEL TONES PRESENT. PT ORAL SUCTIONED AT THIS TIME, CLEAR SECRETIONS PRESENT. AFTERWARDS IV IN RIGHT AC WAS ASSESSED AND WAS LEAKING. IV DC'D, CATHETER INTACT UPON REMOVAL, SITE WNL. GAUZE AND TAPE PLACED OVER. NO FURTHER NEEDS ASSESSED, IVF AND PROPOFOL INFUSING AT PREVIOUS RATES, WILL CONTINUE PLAN OF CARE.
--- NOTE | 2021-12-12 05:40 | NUR ---
PT RESTING IN BED ON VENTILATOR, IV MEDICATIONS AND VENTILATOR SETTINGS UNCHANGED. PT IN NO APPARENT DISTRESS. LABS DRAWN AT THIS TIME AND NEW BAG OF D5LR STARTED AND NOW INFUSING. PT BECAME RESTLESS WHEN ORAL SUCTIONED BUT REMAINED CALM ONCE FINISHED. PT NOW RESTING IN BED, NO FURTHER NEEDS ASSESSED, WILL CONTINUE PLAN OF CARE.
--- NOTE | 2021-12-12 07:21 | NUR ---
PT IN RESTLESS ON THE VENTILATOR , ORAL SUCTION USED TO CLEAR COPIOUS AMOUNTS OF SECRETIONS. PT BECAME CALM AND RESTED AFTERWARDS. IV PROPOFOL, IVF INFUSING AT PREVIOUS RATES, VENTILATOR SETTINGS UNCHANGED. LABS REDRAWN AT THIS TIME AND SENT, NEW BOTTLE OF PROPOFOL STARTED AND INFUSING AT PREVIOUS RATE OF 50MCG/KG/MIN. PT BECAME RESTLESS AFTERWARDS AROUND 0720, 10MG PRN VALIUM ADMINISTERED. PT NOW RESTING IN BED IN NO APPARENT DISTRESS, WILL CONTINUE PLAN OF CARE AND GIVE REPORT TO THE DAYSHIFT RNS.
--- NOTE | 2021-12-12 07:39 | NUR ---
REPORT RECIEVED, CARE OR PT ASSUMED AT THIS TIME. PT RESTING ON VENT, PROPOFOL INFUSING AT 50 MCG/KG/MIN.
--- NOTE | 2021-12-12 08:00 | NUR ---
INITIAL ASSESSMENT AND MEDICATION ADMINSTRATION COMPLETED AT THIS TIME. PT ON PROPOFOL DRIP AND 50 MCG/KG/MIN. PT LUNGS SOUND DIMINISHED IN BILTERAL BASES. IV FLUIDS INFUSING. THIS RN REMAINS AT BEDSIDE AT THIS TIME.
--- NOTE | 2021-12-12 08:50 | NUR ---
Pt was reintubated and remains sedated.
--- NOTE | 2021-12-12 09:46 | NUR ---
dr bone in to Assess Pt. five beats of clonus noted upon nuerological exam. plan of care established to keep PT on ventilator for the the day and to insert OG tube and start trickle feeds. This RN at bedside.
--- NOTE | 2021-12-12 10:30 | NUR ---
OG INSERTED, CHEST XRAY COMPLETED FOR VERIFICATION.
--- NOTE | 2021-12-12 10:50 | NUR ---
PT HAS COPIOUS AMOUNTS OF ORAL AND ETT TUBE SECRETIONS. PT SITTING UP, COUGHING THROUGH THE TUBE. PRN VALIUM GIVEN (SEE EMAR). ORAL SUCTIONING AND ETT TUBE SUCTIONING COMPLETED AT THIS TIME. PT NOW RESTING. SPO2 = 92% ON CURRENT VENT SETTINGS. RT CALLED TO BEDSIDE TO ASSIST WITH GETTING A CO2 WAVE FORM ON THE SUPERVISOR MOLD YARD.
--- NOTE | 2021-12-12 11:45 | NUR ---
PT COUGHING AT TUBE, KNEES IN THE AIR, PULLING AT WRIST RESTRAINTS. PRN VALIUM ADMINISTERED. WILL CONTINUE TO MONITOR.
--- NOTE | 2021-12-12 12:13 | NUR ---
THIS RN AND SECURITY IN ROOM TO REPOSITION PT. SKIN CARE COMPLETED, [place] CARE COMPLETED AND ASSESSMENT COMPLETED. PT CONTINUES TO HAVE COPIOUS AMOUNTS OF ORAL SECRETIONS. PROPOL DRIP, POTASSIUM, AND IV FLUIDS CONTINUE TO INFUSE.
--- NOTE | 2021-12-12 13:22 | NUR ---
PTS SPO2 DECREASED INTO 80S PT PULLING AT WRIST RESTRAINTS AND COUGH AGAINST ET TUBE. PT GIVEN 10 MG IV VALIUM (SEE EMAR) AND ORAL SUCTIONING COMPLETED. PTS SPO2 = 94% AT THIS TIME. THIS RN REMAINS AT BEDSIDE. PROPOFOL CONTINUES TO INFUSE AT 50 MCG/KG/MIN. POTASSIUM AND IV FLUIDS INFUSING. MINAYA PORT ON PICC LINE NOT PULLING BACK BLOOD AND DIFFICULT TO INFUSE. ALTEPLASE DWELLING IN PORT AT THIS TIME. THIS RN REMAINS AT BEDSIDE. WILL CONTINUE TO MONITOR.
--- NOTE | 2021-12-12 15:00 | NUR ---
TRICKLE FEEDINGS IN OG INITIATED AT 20 MLS HOUR AT THIS TIME.
--- NOTE | 2021-12-12 15:42 | NUR ---
PT COUGHING ON THE VENT. COPIOUS ET TUB AND ORAL SECRETIONS. PULLING AT WRIST RESTRAINTS. PROPOFOL DRIP TITRATED UP TO 60 MCG/KG/MIN. 20 MG OF PRN IV VALIUM GIVEN. POTASSIUM AND IV FLUIDS INFUSING. THIS RN REMAINS AT BEDSIDE.
--- NOTE | 2021-12-12 16:50 | NUR ---
DR DOMINGUEZ UPDATED ON PT STATUS, INCREASED PROPOFOL, ORAL SECRETIONS AND THE FREQUENCY OF GIVING PRN IV VALIUM.
--- NOTE | 2021-12-12 16:57 | NUR ---
THROUGHOUT SHIFT PT HAS BEEN A RASS SCORE OF -1, WITH REGULAR INTERVALS OF+1 WHERE PRN VALIUM HAS BEEN GIVEN. PT HAS HAD COPIOUS ET TUBE AND ORAL SECRETIONS. FREQUENT SUCTIONING NEEDED. OG PLACED AND TRICKLE FEEDING INITIATED AT 20 MLS AN HOUR. THIS RN HAS DONE q2 HOUR ORAL CARE, AM CARES, AND REPOSITIONED PT IN BED EVERY 1-2 HOURS.
--- NOTE | 2021-12-12 18:19 | NUR ---
PT GIVEN PRN VALIUM AT THIS TIME FOR AGGITATION (SEE EMAR). ORAL SUCTIONING COMPLETED. SPOE = 98% AT THIS TIME. IV FLUIDS AND PROPOFOL DRIP CONTINUE TO INFUSE.
--- NOTE | 2021-12-12 20:28 | NUR ---
ARRIVED TO SHIFT, PT INTUBATED AND SEDATED, RASS OF +1, SEDATION MEDICATIONS REVIEWED AND ADMINISTERED PER JAN. RT AT BEDSIDE, ORAL CARE AND SUCTION COMPLETED, HEAD TO TOE ASSESSMENT COMPLETED, RASS SCORE DOWN TO -2 PRIOR TO RN LEAVING ROOM
--- NOTE | 2021-12-12 22:20 | NUR ---
DR DOMINGUEZ NOTIFIED REGARDING PT'S RASS SCORE REGARDLESS OF KETAMINE AND VALUM PUSHES, ADDITIONAL SEDATION WILL BE ORDERED BY ANGELICA
--- NOTE | 2021-12-13 01:02 | NUR ---
PT REMAINS SEDATED AND INTUBATED, PROPOFOL REMAINS AT 60, ALTERNATING VALUM, KETAMINE, AND PHENOBARBITOL PUSHES FOR BREAKTHROUGH AGIGATION. LOTS OF SECREATIONS FROM MOUTH AND ETT. FREQUENT SUCTIONING AND ORAL CARE BEING PERFORMED. PT IS DIAPHORETIC HOWEVER AFEBRIL. BLOOD PRESSURES WNL AND PT REMAINS IN NORMAL SINUS.
--- NOTE | 2021-12-13 05:52 | NUR ---
PT SEDATED AND INTUBATED, PROPOFOL REMAINS AT 60 MCG/KG/MIN, PRN'S GIVEN PER MAR FOR BREAKTHROUGH AGIGTATION, RASS -2, PT EASILY RESTLESS WHEN REPOSITIONED OR SUCTIONED, ORAL CARE AND SUCTION PROVIDED, COPIOUS AMOUNTS OF SECREATIONS FROM MOUTH, MODERATE FROM ETT, TUBE FEEDS INCREASED PER ORDER, CURRENTLY AT 60 ML/HR, HYPOACTIVE BOWEL TONES, RESTRAINTS REMAIN IN PLACE FOR PROTECTION OF ETT AND LINES, ADEQUATE URINE OUTPUT OVER NIGHT, VITALS WNL
--- NOTE | 2021-12-13 07:22 | NUR ---
REPORT RECIEVED, CARE OF PT ASSUMED AT THIS TIME. PT RESTING ON VENT, RR= 18. PROPOFOL INFUSING AT 60 MCG/KG/MIN. PT REMAINS VISIBLE FROM NURSES STATION.
--- NOTE | 2021-12-13 07:40 | NUR ---
Update from RN. Pt remains on vent, requiring increased amount of sedation.
--- NOTE | 2021-12-13 08:00 | NUR ---
ASSESSMENT COMPLETED. PT CURRENTLY AT A RASS SCORE OF -3. PUPILS EQUAL AND REACTIVE. LUNGS SOUND CLEAR AND DIM IN THE BILATERAL LUNG BASES. PT CONTINUES TO HAVE COPIOUS AIRWAY SECRETIONS.ORAL CARE PROVIDED. RESTRAINTS RELEASED, PT REPOSITIONED IN BED. PROPOFOL CONTINUES TO INFUSE AT 60 MCG/KG/MIN. IV FLUIDS INFUSING. TUBE FEEDS GOING INTO OG AT 60 MLS/HR. PT IS PASSING GAS. BOWEL TONES ACTIVE. PT REMAINS VISIBLE FROM NURSES STATION. CALL LIGHT WITHIN REACH. WILL CONTINUE TO MONITOR.
--- NOTE | 2021-12-13 09:24 | NUR ---
AI IN WITH STUDENT TO PLACE A MIDLINE. PATIENTS SISTER AT BEDSIDE FOR A BRIEF VISIT. FRESH ICE WATER PROVIDED. NO OTHER NEEDS AT THIS TIME.
--- NOTE | 2021-12-13 09:35 | NUR ---
DISCUSSED PTS HEAVY SEDATION WITH DR DOMINGUEZ. PLAN TO TITRATE PROPOFOL DRIP DOWN TO MAINTAIN A RASS SCORE OF -1. PROPOFOL DRIP NOW INFUSING AT 50 MCG/KG/MIN. THIS RN AT BEDSIDE.
--- NOTE | 2021-12-13 11:14 | NUR ---
OG TUBE FLUSHED WITH 100 MLS OF WATER. LIQUID POTASSIUM ADMINISTERED (SEE EMAR). TUBE FEEDINGS NOW INFUSING INTO OG AT GOAL RATE OF 70 MLS/HR. PT REMAINS AT A RASS OF -3. PROPOFOL DRIP TITRATED DOWN TO 40 MCG/KG/MIN. ORAL CARE PROVIDED. PT REPOSITIONED IN BED. ASSESSMENT REMAINS UNCHANGED AT THIS TIME. WILL CONTINUE TO MONITOR.
--- NOTE | 2021-12-13 11:55 | NUR ---
PT IS PULLING AT WRIST RESTRAINTS AND TRYING TO SIT UP PERIODICALLY. THIS RN AT BEDSIDE.
--- NOTE | 2021-12-13 12:31 | NUR ---
RT IN ROOM WITH THE PT. PT HS COPIUS SECRETIONS, COUGHING AT THE TUBE, EYES OPEN, PULLING AT WRIST RESTRAINTS. THERAPEUTIC COMMUNICATION NOT HELPFUL. 10 MG IV VALIUM GIVEN (SEE EMAR).
--- NOTE | 2021-12-13 14:25 | NUR ---
PHYSICAL THERAPY IN ROOM TO WORK WITH PT AT THIS TIME. PT RASS SCORE INCREASED TO +2 WITH ACTIVITY, BUT BACK TO -1 WHEN NOT TOUCHED. PROPOFOL REMAINS AT 40 MCG/KG/MIN.
--- NOTE | 2021-12-13 15:00 | NUR ---
ASSESSMENT COMPLETED. PT AT A RASS SCORE OF -2, UP TO +1 WITH ORAL SUCTIONING. PROPOFOL INFUSING AT 40 MCG/KG/MIN. LUNGS SOUND COARSE IN THE UPPER AIRWAYS AT TIMES, BUT CLEAR AFTER ORAL SUCTIONING. BILATERAL LUNG BASES ARE DIM. PUPILS EQUAL AND REACTIVE. BOWEL TONES ARE ACTIVE. TUBE FEEDS CONTINUE TO INFUSE AT 70 MLS/HR. CMS INTACT IN ALL EXTREMITIES, RADIAL AND PEDAL PULSES ARE STRONG. PT REMAINS VISIBLE FROM [facility] STATION. WILL CONTINUE TO MONITOR.
--- NOTE | 2021-12-13 16:00 | NUR ---
TUBE FEEDING BAG AND TUBING CHANGED AFTER 100 ML FLUSH DOWN OG.
--- NOTE | 2021-12-13 16:15 | NUR ---
PT COUGHING, REACHING HANDS TOWARD ET TUBE. GIVEN PRN VALIUM IV AT THIS TIME (SEE EMAR). PT NOW RESTING. WILL CONTINUE TO MONITOR.
--- NOTE | 2021-12-13 18:09 | NUR ---
PT REPOSTIONED IN BED. ASSESSED RESTRAINTS AND FOR PAIN. ORAL CARE PROVIDED AT THIS TIME. PROPOFOL CONTINUES TO INFUSE AT 40 MCG/KG/MIN. SPOE = 96% ON CURRENT VENT SETTINGS. WILL CONTINUE TO MONITOR.
--- NOTE | 2021-12-13 18:30 | NUR ---
PUTTING COUGH AGAINST VENT, PULLING AT WRIST RESTRAINTS. 10 MG OF PRN IV VLAIUM GIVEN. ORAL AND ETT TUBE SECRETIONS SUCTIONED. THIS RN AT BEDSIDE.
--- NOTE | 2021-12-13 20:53 | NUR ---
ARRIVED TO SHIFT, PT SEDATED AND INTUBATED, RASS -2. DURING ASSESSMENT RASS INCREASED TO +3, PT NOT TOLERATING VENT, VERY AGGITATED, UNABLE TO FOLLOW COMMANDS, IV PUSH PHENOBARBITOL GIVEN PER MAR AND PROPOFOL INCREASED TO 50 MCG/KG/MIN. COPIOUS AMOUNTS OF SECREATIONS, FREQUENT SUCTION NEEDED, PT SUCTIONED, ORAL CARE PROVIDED, PT REPOSITIONED, ADEQUATLY SEDATED NOW
--- NOTE | 2021-12-14 02:00 | NUR ---
PT REMAINS INTUBATED AND SEDATED, RASS -1, EASILY AGGITATED WITH ANY MOVEMENT OR SUCTIONING. ASSESSMENT REMAINS UNCHANGED FROM PREVIOUS
--- NOTE | 2021-12-14 07:45 | NUR ---
REPORT RECEIVED FROM NANDO GORDON. PT RESTING WITH EYES CLOSED, SOFT RESTRAINTS IN PLACE, OCCASIONAL COUGHING NOTED WITH PT RAISING HEAD UP THEN HE SETTLES DOWN AFTER, EYES CLOSED, ON VENT WITH FIO2 30%, TV500, PEEP 5 AND RATE 18, SPO2 95%.
--- NOTE | 2021-12-14 08:37 | NUR ---
PT IS MOVING, PULLING ARMS AT RESTRAINTS AND BENDING HEAD DOWN TO HIS HANDS. 10MG IV VALIUM GIVEN, PT REASSURED. SETTLED BACK DOWN TO RESTFUL QUICKLY, RASS -4 AFTER VALIUM GIVEN.
--- NOTE | 2021-12-14 08:46 | NUR ---
RT IN WITH PT
--- NOTE | 2021-12-14 09:35 | NUR ---
PT WOKE UP WHILE TRYING TO REPOSITION HIM AND GIVE BREAK FROM RESTRAINTS, BEGAN COUGHING WITH COPIOUS SECRETIONS, ORAL SUCTION DONE WELL INLINE. VALIUM 10MG IV GIVEN PT WAS NOT COOPERATIVE OR SEEMED TO BE REGISTERING ANY OF THE DIRECTIONS GIVEN HIM, CONTINUED TO TRY TO REACH HANDS UP TO HEAD OR BEND HEAD DOWN TO HANDS. PT CALMED AFTER MEDS GIVEN. DURING PTS AGITATION THE VENT TUBING CAME DETACHED FROM ETT, RECONNECTED QUICKLY. SATS DOWN TO 82%, SLOWLY BACK UP TO 88-90%. RT NOTIFIED, IN TO CHECK ON PT-PEEP INCREASED TO 8 AND SATS UP TO 91% WITH FIO2 AT 40%.
--- NOTE | 2021-12-14 10:02 | NUR ---
PT CALMS AFTER VALIUM GIVEN. BACK TO RASS -4.
--- NOTE | 2021-12-14 10:02 | NUR ---
PT BECAME AGITATED AGAIN, PULLING AT RESTRAINTS, COUGHING AND BENDING HEAD DOWN. 10MG IV VALIUM GIVEN. DR DOMINGUEZ IN TO SEE PT. IVF D/CD.
--- NOTE | 2021-12-14 10:15 | NUR ---
PT IN TO DO ROM WITH PT, PT REMAINS CALM AND RESTING. SPO2 94%.
--- NOTE | 2021-12-14 11:23 | NUR ---
PRECEDEX GTT STARTED AT 0.4MCG/KG/HR. IV LASIX 20MG GIVEN.
--- NOTE | 2021-12-14 12:13 | NUR ---
PROPOFOL TURNED DOWN TO 60MCG/KG/MIN, RASS -4. ASSESSMENT DONE, UNCHANGED FROM PREVIOUS.
--- NOTE | 2021-12-14 15:15 | NUR ---
PT GIVEN BED BATH AND LINEN CHANGE. SMEAR OF STOOL NOTED, HARJIT AREA CLEANED. SKIN LOOKS INTACT. PT REMAINS SEDATED AND RASS -4 DURING CARE ACTIVITIES, PROPOFOL AND PRECEDEX TITRATED DOWN, PROPOFOL 40MCG/KG/MIN AND PRECEDEX AT 0.2 MCG/KG/HR.
--- NOTE | 2021-12-14 16:00 | NUR ---
PT WAS POSITIVE FOR CLONUS ON LEFT FOOT. WAS NOT ABLE TO GET A POSITIVE ON HIS RIGHT FOOT. UPPER LOBES CLEAR, LOWER LOBES DIMINSHED. OG-TUBE FLUSHED WITH 50MLS OF WATER. NO ISSUES NOTED WITH THAT. NEW TUBE FEED BAG HUNG, RESTRAINT WDL, BILATERAL ARMS/ HANDS/ FEET HAVE SOME DEPENANT/ GENERAL EDEMA PRESENT. ABD SOUNDS ACTIVE. NO BM SO FAR TODAY. PUPILS 2MM AND REACTIVE.
--- NOTE | 2021-12-14 18:04 | NUR ---
RASS -1 TO -2. BP'S ARE DROPPING HR UPPER 50'S TO 60. SBP AT 90, MAP 66. PRECEDEX DRIP AT 0.2MCG AND PROPOFOL AT 40MCG. PT WILL RECEIVED A DOSE OF KETAMINE DUE TO LOW BP'S AND PRECEDEX WILL BE SCALED BACK. OTHERWISE NO NEW CONCENRS NOTED AT THIS TIME.
--- NOTE | 2021-12-14 18:57 | NUR ---
PT BP AND HR RESPONDED WELL TO 25MG OF IV KETAMINE. NO NEW CONCERNS NOTED.
--- NOTE | 2021-12-14 20:36 | NUR ---
PT APPEARS COMFORTABLE IN BED, REMAINS SEDATED AND INTUBATED, RASS -2, COPIOUS AMOUNTS OF SECREATIONS, ORAL CARE AND SUCTION COMPLETED, PT REPOSITIONED AND TUBE REPOSITIONED WELL. HEAD TO TOE ASSESSMENT COMPLETED, MEDICATIONS REVIEWED AND VERIFIED, LABS REVIEWED, RESTRAINTS IN PLACE
--- NOTE | 2021-12-14 22:19 | NUR ---
PT RESTING COMFORTABLY, RASS -2, PROPOFOL REMAINS AT 40 AND PRECEDEX REMAINS AT 0.2. ETT MOVED TO MIDDLE OF MOUTH, SUCTION AND ORAL CARE PROVIDED, TUBE FEEDS INFUSING AT 70 ML/HR, HYPOACTIVE BOWEL TONES, NO BOWEL MOVEMENT SINCE ADMISSION, [place] DRAINING, GREEN URINE SECONDARY TO PROPOFOL. FI02 ON VENT IS AT 45%, PEEP REMAINS AT 8, PTS SP02 RANGING FROM 94-98%
--- NOTE | 2021-12-15 00:45 | NUR ---
RASS -2, PROPOFOL REMAIANS AT 40 MCG/KG/MIN, PRECEDEX REMAINS AT 0.2 MCG/KG/HR, PT SUCTIONED, ORAL CARE PERFORMED, TUBE MOVED TO RIGHT SIDE OF MOUTH, PT REPOSITIONED WITH PILLOWS, [place] DRAINING GREEN URINE, [place]/PERICARE PERFORMED, RESTRAINTS IN PLACE TO AVOID PULLING AT LINES AND ETT, ASSESSMENT UNCHANGED FROM PREVIOUS
--- NOTE | 2021-12-15 01:06 | NUR ---
PICC LINE DRESSING CHANGED
--- NOTE | 2021-12-15 02:40 | NUR ---
RASS -2, NO SEDATION CHANGES MADE, ETT MOVED TO CENTER MOUTH, ORAL CARE AND SUCTION COMPLETED, PT REPOSITIONED, NO CHANGES
--- NOTE | 2021-12-15 05:35 | NUR ---
PT SEDATED AND INTUBATED, RASS +1, PRECEDEX INCREASED TO 0.4 MCG/KG/HR, VALUM IV PUSH GIVEN PER MAR, LABS DRAWN FROM PICC LINE, LUMEN HEPARIN LOCKED AFTERWARDS
--- NOTE | 2021-12-15 06:32 | NUR ---
RASS +1, PRECEDEX GTT INCREASED TO 0.6 MCG/KG/HR, IV PUSH KETAMINE GIVEN PER MAR, LABS RECEIVED AND REVIEWED, END OF SHIFT I&O'S COMPLETED, DECREASED URINE OUTPUT, 425 OF URINE OUT, TOTAL OF 1334 ML INTAKE INCLUDING TUBE FEEDING, NO BOWEL MOVEMENT FOR SKIN INSTALLER, ORAL CARE AND SUCTION COMPLETED, ETT REPOSITIONED, PT REPOSITIONED WITH PILLOWS
--- NOTE | 2021-12-15 07:30 | NUR ---
RECEIVED REPORT AT 0700. IT WAS NOTED THAT DURING REPORT O2 SATS WERE DROPPING DOWN TO 87% ON VENT SEETINGS OF VT500/ RR18/ PEEP 8/ FIO2 45%.
--- NOTE | 2021-12-15 07:45 | NUR ---
PT HAS ANYI ORALLY SUCTIONED AND INLINE SUCTIONED. THERE WAS A MODERATE AMOUNT OF SECRTETION PRESENT. RT WAS CALLED. AFTER TRYING A FEW THINGS BY RT, O2 SATS WERE STILL <90%. MD DOMINGUEZ TO BE CALLED FOR A CHEST X-RAY.
--- NOTE | 2021-12-15 07:47 | NUR ---
MD DOMINGUEZ WAS CALLED DUE TO DROPPING O2 SATS AND INCREASED FIO2. RT IN ROOM TRYING SOME THINGS. NO PROGRESS. RECEIVED ORDER FOR CHEST X-RAY.
--- NOTE | 2021-12-15 08:00 | NUR ---
SINCE START OF SHIFT PT HAS RECEIVED A TOTAL OF 50MG KETAMIN AND PROPOFOL WAS INCREASED TO 50MCG/KG. VENT SETTINGS ARE: VT 500/ RR 18/ FIO2 95%/ PEEP 14. O2 SATS AT THIS TIME >90%. PT OVERALL ALSO APPEARS MORE SEDATED. RASS NOW -2. BEFORE RASS WAS MORE +1. LOBES ARE CLEAR. ABD SOUND HYPOACTIVE, GENERALIZED DEPENDANT EDEMA UNCHANED IN BILATERAL ARMS/HANDS AND FEET. PT WAS ALSO DIAPHORETC WHEN I AT FIRST ENTERED THE ROOM AFTER REPORT. RESTRAINTS WDL. TUBE FEED RATE 70MLS /HR.
--- NOTE | 2021-12-15 09:11 | NUR ---
PT SINCE 816 HAS NOT MADE ANY URINE AT ALL. WILL CONTINUE TO MONITOR FOR ANOTHER HOUR.
--- NOTE | 2021-12-15 09:46 | NUR ---
[place] FLUSHED AT AROUND 0925 WITH 40MLS STERIL NS. AT THIS TIME RETURN WAS 55MLS. THIS LEAVES ACTUAL URINE OF 15MLS/ 0.5HRS AT THIS TIME. MD DOMINGUEZ AWARE, WILL CONTINUE TO MONITOR.
--- NOTE | 2021-12-15 10:28 | NUR ---
STARTED TO TURN DOWN PROPOFOL AND PRECEDX DRIPS FOR SEDATION VACATION. RASS -2 AT THIS TIME.
--- NOTE | 2021-12-15 11:00 | NUR ---
PT AT THIS TIME IS OFF PROPFOL AND PRECEDEX DRIP IS AT 0.5MCG/KG. PT IS AWAKENING AND MOSTLY FOLLOWING COMMANDS TO SQUEEZE HANDS AND WIGLLE HIS TOES. PT OVERALL CALM.
--- NOTE | 2021-12-15 11:08 | NUR ---
PT IS BREATHING WELL ON C-PAP MODE. PT EVEN MORE AWAKE.
--- NOTE | 2021-12-15 11:54 | NUR ---
ALL LOBES CLEAR, LOWER LOBES A BIT DIMINISHED. PT NOT EXTUBATED OF YET BUT DOING WELL BRATHING ON HIS OWN VIA C-PAP. PT MORE ALERT AND FOLLOWING COMMANDS OVERALL. PRECEDEX DRIP AT 0.7MCG/KG. V/S WDL. URINE OUTPUT STILL NOT ADEQUATE. WILL CONTINUE TO MONITOR.
--- NOTE | 2021-12-15 12:27 | NUR ---
PT WAS EXTUBATED AT 1200. EXTUBATION WENT WELL. PT DID NOT SHOW AGRESSIVE BEHAVIOR TOWARD STAFF. PT AT THIS TIME IS OUT OF RESTRAINTS, PRECEDX 0.6MCG/KG, 5L O2 VIA OXYMASK. V/S WDL OVERALL. WILL CONTINUE TO MONITOR.
--- NOTE | 2021-12-15 15:11 | NUR ---
BED BATH DONE AND LINNEN CHANGE DONE AT 1445. PT DID HAVE A BM. PT STILL DROWSY THOUGH AND NOT ABLE TO SPEAK WELL AT ALL. PT ALSO HAS NO FINE MOTOR SKILLS AT THIS TIME. PRECEDEX WAS TURNED OFF AT 1500. WILL CONTINUE TO MONITOR.
--- NOTE | 2021-12-15 16:00 | NUR ---
PT HAS BEEN OFF PRECEDEX DRIP SINCE ABOUT 1500 OR SO. PT IS MORE ALERT BUT DOES NOT HAVE FINE MOTOR SKILLS AT ALL. PT ALSO IS STILL DROOLING LARGE AMOUNTS OF SPUTUM, PT DID FAILED HIS BEDSIDE SWALLOW STUDY. UPPER LOBES CLEAR, LOWER LOBES DIMINSIHED. PERIPH. EDEMA BETTER. PT ON ROOM AIR SINCE 1500 AND DOING WELL.
--- NOTE | 2021-12-15 17:15 | NUR ---
AT 1654 COMPAZINE 10MG IV WAS GIVEN OVER THE LENGTH OF 2MINUTES PLUS. SHORTLY AFTER ADMINISTRATION WAS FINISHED HR WAS UP TO 110. I CAME BACK INTO PT ROOM TO ASK ABOUT HIS NAUSEA. PT THEN SAID HE HAD CHEST PAIN. HR AT 1714 STILL 100-108. MD DOMINGUEZ CALLED AND WAS TOLD TO MONITOR FOR NOW.
--- NOTE | 2021-12-15 18:56 | NUR ---
AT 1645 PT DENIED CHEST PAIN. HR REMAINS ELEVATED.
--- NOTE | 2021-12-15 22:00 | NUR ---
PT IN BED, RESTLESS BUT WEAK, VERY GARBALLED SPEECH, COORDINATION PROBLEMS, UNABLE TO GRASP MOUTH SWABS WITH HANDS, PT IS ATTEMPTING TO SIT UP AND PUT LEGS OVER THE SIDE OF THE BED, PRECEDEX STARTED AT 0.2 MCG/KG/HR, HAVING DIFFICULTY ANSWERING QUESTIONS, ATTEMPTED TO SCREEN SUICIDE RISK, PT NODS HEAD WHEN ASKED IF HE WAS TRYING TO HARM HIMSELF AND NODS HEAD NO WHEN ASKED IF HE STILL WANTS TO HARM OR KILL HIMSELF, MOUTH WAS SUCTIONED, PT UNABLE TO CLEAR OWN SECREATIONS.
--- NOTE | 2021-12-16 01:22 | NUR ---
PT ATTEMPTING TO GET OUT OF BED, WHEN I ATTEMPTED TO REDIRECT PT HE PUNCH MY CHEST AND WAS ATTEMPTING TO KICK ME, BED WAS LOWERED AND FLATTENED, SECURITY AND HOUSE SUP CALLED FOR ASSISTANCE. PT WAS ABLE TO BE REDIRECTED AND CALMED DOWN, PT WANTED TO EAT, WAS EXPLAINED TO HIM HE HAS A WEAK SWALLOW AND GAG REFLEX AT THIS TIME, SMALL SIPS OF WATER WERE OFFERED, PT WAS ABLE TO TAKE SMALL SIPS OF WATER WITH A STRAW WITH NO ISSUES, PT WAS REPOSITIONED IN BED, HE IS STILL RESTLESS HOWEVER HAS CALMED
--- NOTE | 2021-12-16 03:30 | NUR ---
INVERTED T WAVE NOTED ON MONITOR, LOOKING BACK IT APPEARS THAT AROUND 1900 ON 12/15 WAS WHEN THE T WAVE BECAME INVERTED. AM EKG ORDERED AND DR DOMINGUEZ SENT A NOTE REGARDING THIS CHANGE
--- NOTE | 2021-12-16 06:28 | NUR ---
PT RESTING IN BED, HAD BOWEL MOVEMENT, PT WAS CLEANED, ENCOURAGE TO ASSIST US IN TURNING HOWEVER WAS UNABLE, PRECEDEX WAS INCREASED TO 0.6 MCG/KG/HR DUE TO INCREASED AGGITATION, NO OTHER CHANGES IN ASSESSMENT
--- NOTE | 2021-12-16 07:44 | NUR ---
report recieved, care of PT assumed at this time. pt resting in bed, breathing even and unlabored. Call light within reach. Will continue to monitor.
--- NOTE | 2021-12-16 08:33 | NUR ---
ASSESSMENT AND MEDICATION ADMINISTRATION COMPLETED. PRECEDEX INFUSING AT 0.6 , TITRATED DOWN AT THIS TIME TO 0.4 MCG/KG/HR. PT ALERT BUT DROWSY; ORIENTED TO EVENT, LOCATION, AND YEAR. ANSWERING QUESTIONS APPROPRIATELY. PT NOT BEING AGRESSIVE AND AGREEABLE TO CARES. DISCUSSED PLAN FOR DAY. THIS RN FEED PT A JELLO, PT HAD SOME DISCOMFORT WITH EATING BUT STATES ITS FROM A SORE TOUNGE. NO ISSUES SWALLOWING NOTED. PT REPOSITIONED IN BED. CALL LIGHT WITHIN REACH, BED ALARM IN PLACE. PLAN TO TITRATE OFF PRECEDEX ESTABLISHED. WILL CONTINUE TO CLOSELY MONITOR.
--- NOTE | 2021-12-16 09:06 | NUR ---
PRECEDEX DRIP TITRATED DOWN TO 0.2 MCG/KG/HR. NEW BAG OF FLUIDS INFUSING. PT CONTINUES TO BE APPROPRIATE, ANSWERING QUESTIONS. BED ALARM IN PLACE, CALL LIGHT WITHIN REACH. WILL CONTINUE TO MONITOR.
--- NOTE | 2021-12-16 09:30 | NUR ---
PT NOW ON A ONE TO ONE DIRECT OBSERVATION FOR SUICIDE PRECAUTIONS DISCUSSED WITH INSIDE CONTRACTOR SALES
--- NOTE | 2021-12-16 09:46 | NUR ---
PRECEDEX DRIP NOW OFF. PT RESTING WATCHING TELEVISION. CALL LIGHT WITHIN REACH. BED ALARM IN PLACE. WILL CONTINUE TO MONITOR.
--- NOTE | 2021-12-16 10:29 | NUR ---
[facility] CALLED AND UPDATED ON PT CONDITION. PLAN FOR PT TO BE EVALUATED LATER THIS AFTERNOON.
--- NOTE | 2021-12-16 11:41 | NUR ---
[place] CATHETER DC'D AT THIS TIME. NICKO MICHELE REMAINS ON ONE TO ONE SUICIDE PRECAUTIONS WITH PT. CALL LIGHT WITHIN REACH. WILL CONTINUE TO MONITOR.
--- NOTE | 2021-12-16 12:20 | NUR ---
PATIENT WAS EXTUBATED YESTERDAY. TUBE FEEDING ALSO D/C'D. DIET ORDER IS NOW REGULAR. WILL CONTINUE TO MONITOR.
--- NOTE | 2021-12-16 12:35 | NUR ---
Update from RN. Pt off vent. Has a sitter. [facility] will see today.
--- NOTE | 2021-12-16 13:30 | NUR ---
ASSESSMENT COMPLETED. PT REMAINS ALERT AND ORIENTED, BEHAVIOR APPROPRIATE. REMAINS ON ONE TO ONE FOR SUICIDE PRECAUTIONS. PT UNDERSTANDS PLAN OF CARE. STATES HE WANTS TO WORK WITH PHYSICAL THERAPY. PLAN OF CARE FOR AFTERNOON ESTABLISHED. NO FURTHER NEEDS AT THIS TIME.
--- NOTE | 2021-12-16 13:57 | EKG ---
[facility] [address] [place] [address] Signed Normal sinus rhythm Septal infarct , age undetermined Abnormal ECG When compared with ECG of 07-DEC-2021 23:42, Vent. rate has decreased BY 82 BPM Non-specific change in ST segment in Inferior leads ST no longer depressed in Anterolateral leads Nonspecific T wave abnormality has replaced inverted T waves in Inferior leads T wave inversion no longer evident in Anterolateral leads Confirmed by BECKY DOMINGUEZ MD ([id number]) on 12/16/2021 1:57:19 PM Electronically Signed By: BECKY DOMINGUEZ MD 12/16/21 1357 PATIENT NAME: CAMERON ARMIJO Electrocardiogram DATE OF : [birth year] PHYSICIAN: BECKY DOMINGUEZ MD REPORT #: [id number] REPORT IS CONFIDENTIAL AND NOT TO BE RELEASED WITHOUT AUTHORIZATION
--- NOTE | 2021-12-16 15:30 | NUR ---
PT REMAINS ON A ONE TO ONE WITH SECURITY FOR SUICIDE PRECAUTIONS. UP WALKING IN THE HALLWAYS WITH PHYSICAL THERAPIST AND SECUTIRY. PT WAS ABLE TO WALK TO THE END OF THE HALLWAY AND BACK. NOW BACK IN BED. SECURITY REMAINS AT BEDSIDE.
--- NOTE | 2021-12-16 16:41 | NUR ---
ASSESSMENT COMPLETED. PT IS ALERT AND ORIENTED BUT DROWSY. NO CHANGES NOTED. PT REMAINS COMPLIANT WITH ALL CARES AND BEHAVIOR HAS BEEN APPROPRIATE. DENIES ANY SUICIDAL IDEATION AT THIS TIME. REMAINS ON A ONE TO ONE WITH SECURITY AT PT BEDSIDE. PT DENIES PAIN OR DISCOMFORT. WILL CONTINUE TO MONITOR.
--- NOTE | 2021-12-16 18:23 | NUR ---
PT ASKING FOR MEDICATION TO HELP HIM SLEEP. PROVIDED PT EDUCATION ABOUT CURRENT CONDITION. PT VERBALIZED UNDERSTANDING. PT REMAINS ON SUICIDE PRECAUTIONS. SECURITY AT BEDSIDE.
--- NOTE | 2021-12-16 20:17 | NUR ---
ASSESSMENT COMPLETED, PT WALKED WITH WALKER IN HALLWAY WITH SBA FROM SECURITY, PT APPEARS TO BE IN GOOD SPIRITS, VERY COOROPERATIVE. DOES COMPLAIN OF INSOMNIA, DR CUTLER NOTIFIED AND REQUESTED MEDICATION TO HELP SLEEP, MELATONIN ORDERED, PT BACK IN BED WATCHING TV, APPEARS RESTLESS HOWEVER HAS NO OTHER COMPLAINTS
--- NOTE | 2021-12-17 00:01 | NUR ---
[facility] ARRIVED, HERE TALKING WITH PT AT BEDSIDE
--- NOTE | 2021-12-17 00:06 | NUR ---
PT SLEEPING, UNABLE TO WAKE ENOUGH TO SPEAK WITH CCS, CCS STATED HE WILL HAVE SOMEONE CALL AND SENT OVER WALKER IN MORNING TO SPEAK WITH PT
--- NOTE | 2021-12-17 01:21 | NUR ---
PT RESTING IN BED, IN AND OUT OF SLEEP, SECURITY AT BEDSIDE, Q15 MINUTE CHECKS PER SUICIDE PROTOCOL BEING DONE, NO CHANGES FROM PREVIOUS ASSESSMENT
--- NOTE | 2021-12-17 07:35 | NUR ---
PATIENT SITTING UP IN BED FOR BREAKFAST, TATY WITH SECURITY AT BEDSIDE. CALL LIGHT IN EASY REACH
--- NOTE | 2021-12-17 07:40 | NUR ---
IN ROOM FOR ASSESSMENT AND MEDICATION ADMINISTRATION. PT ALERT AND ORIENTED, DENIES PAIN OR DISCOMFORT. EATING BREAKFAST AT THIS TIME. MOOD AND AFFECT ARE POSITIVE, PT DENIES SUICIDAL IDEATION. REMAINS ON A ONE TO ONE WITH SECUIRTY AT BEDSIDE. CALL LIGHT WITHIN REACH. PLAN OF CARE ESTABLISHED. NO FURTHER NEEDS AT THIS TIME.
--- NOTE | 2021-12-17 10:50 | NUR ---
Report received from [facility] HEIDI Sheldon. Pt stable on RA, 1:1 sitter will stay in room w/ pt.
--- NOTE | 2021-12-17 11:15 | NUR ---
Pt arrives to med-surg floor via w/c, ski patrol officer Jay w/ pt as 1:1. VSS on RA. Pt denies any pain at this time. Pt asked about visitors and phone calls. Clarified w/ road gang supervisor pt okay to use hospital landline, but no visitors at this time. Pt informed of this pt agreeable. CCS called for ETA, per [facility] someone will be here at 1300 to evaluate to pt.
--- NOTE | 2021-12-17 12:00 | NUR ---
Pt showered ind w/ setup assistance, security intelligence analyst trevor in bathroom for 1:1 visualization.
--- NOTE | 2021-12-17 13:36 | NUR ---
PT WALKED 1/4 LAP AROUND NURSES STATION WITH FWW. PT NOW BACK IN BED. SECUIRTY AT BEDSIDE. CALL LIGHT WITHIN REACH. NO FURTHER NEEDS AT THIS TIME.
--- NOTE | 2021-12-17 14:00 | NUR ---
Pt resting in bed safely w/ call light in reach, watching TV, information security analyst Jay in room for 1:1, pt denies any suicidal ideations at this time.
--- NOTE | 2021-12-17 14:35 | NUR ---
Attempted to see pt several times throughout the day and he is sleeping with security in the room. Pt is awake. Attempting to make a call. Spoke with pt and he denies needs. Asked if he has ever used [facility] and he states he has been working with them. He refuses when asked if he would like me to call for Peer support. Awaiting CCS for visit.
--- NOTE | 2021-12-17 16:00 | NUR ---
Pt c/o oral pain due to sores on tongue, pt given PRN topical pain relief, see EMAR. Pt denies any further needs, resting in bed safely w/ call light in reach, security dispatcher Jay in room for 1:1.
--- NOTE | 2021-12-17 17:07 | NUR ---
CCS here to evaluate pt's mental status, pt's father also here to see pt, he was informed that pt was not allowed visitors at this time, he was visibly upset but agreed to wait for CCS to clear pt.
--- NOTE | 2021-12-17 18:00 | NUR ---
[facility] has finished evaluating pt, pt's dad now allowed to visit pt briefly w/ security in room to supervise. This is a one time allowance after this pt will go back to strictly no visitors.
--- NOTE | 2021-12-17 18:46 | NUR ---
This RN sitting with patient who is resting in bed watching tv and talking on phone. No distress at this time. No needs.
--- NOTE | 2021-12-17 19:00 | NUR ---
REPORT RECIEVED FROM HEIDI PRASAD. PATIENT IS RESTING IN BED AT THIS TIME. CCS IN ROOM AT THIS TIME.
--- NOTE | 2021-12-17 19:08 | NUR ---
CCS in room to read pt his rights and notify him he is being placed on a hold and will be placed in a treatment facility. Pt became combative and attempted to attack staff, alexsander alexander called over head. Security in room as well as cost control supervisor and EVS to contain pt. called and notified of situation, TORB for one time order of 5mg IV Haldol. Pt was given medication and is now resting safely in bed w/ security in room.
--- NOTE | 2021-12-17 20:30 | NUR ---
PATIENT ASSESSMENT COMPLETE. PATIENT IS CALM AND RESTING IN BED. PATIENT DENIES PAIN OR SHORTNESS OF BREATH. PATIENT IS ALERT AND ORIENTED, WITHDRAWN WITH CARES. PATIENT REFUSED MELATONIN, ENOXAPARIN AND HEP LOCK FOR PICC. LUNG SOUNDS ARE CLEAR. WOB AND RR WNL. HEART SOUNDS WNL. PATIENT PULSES FELT STRONG. BLE WEAK AND WARM. PATIENT IS 1 TO 1. SECURTIY IN ROOM AND THIS RN. NO QUESTIONS AT THIS TIME. PLAN OF CARE UPDATED.
--- NOTE | 2021-12-17 21:57 | NUR ---
VITAL SIGNS DOCUMENTED. PATIENT RESTING IN BED. DENIES ANY PAIN OR SHORTNESS OF BREATH. BREATHING EQUAL AND UNLABORED. PATIENT 1 TO 1. THIS RN IN ROOM. NO QUESTIONS AT THIS TIME.
--- NOTE | 2021-12-17 23:02 | NUR ---
PATIENT RESTING AT THIS TIME. BREATHING EQUAL AND UNLABORED. PATIENT IS 1 TO 1 THIS RN IN ROOM. NO QUESTIONS.
--- NOTE | 2021-12-17 23:34 | NUR ---
PATIENT COMPLAINS OF 8/10 PAIN FROM SORES IN MOUTH. PRN ORAGEL GIVEN TO PATIENT. NO OTHER NEEDS AT THIS TIME. PATIENT DENIES SUCIDAL IDEATION. 1 TO 1 WEB MARKETING INTERN IN ROOM. CALL LIGHT WITHIN REACH. THIS RN IN ROOM.
--- NOTE | 2021-12-17 23:50 | NUR ---
CHART FAXED TO [facility] REQUESTED. [phone] FAX NUMBER.
--- NOTE | 2021-12-17 23:56 | NUR ---
PATIENT AWAKE HAVING TROUBLE SLEEPING. ASKED FOR MELATONIN THAT WAS REFUSED EARLIER. MELATONIN GIVEN. PATIENT HAVING PAIN AND NAUSEA. PRN PHENERGAN GIVEN. PATIENT IS 1 TO 1 MERCHANDISE DISPLAYER AND THIS RN IN ROOM. CALL LIGHT WITHIN REACH NO FUTHER NEEDS.
--- NOTE | 2021-12-18 01:55 | NUR ---
PATIENT ASLEEP. BREATHING EQUAL AND UNLABORED. PATIENT IS 1 TO 1 SECURITY AND THIS RN IN ROOM. NO QUESTIONS. CALL LIGHT WITHIN REACH NO FUTHER NEEDS.
--- NOTE | 2021-12-18 04:00 | NUR ---
PATIENT ASSESSMENT COMPLETE. PATIENT DROWSY, ASLEEP. PATIENT DENIES PAIN, SHORTNESS OF BREATH AND SUCIDAL IDEATION. LUNG SOUNDS ARE CLEAR THROUGHOUT. RR AND WOB WNL. CMST INTACT. PULSES FELT STRONG. PATIENT HAS NO HAD A BM. BOWEL TONES ACTIVE. NO URINE. PATIENT IS A 1 TO 1. SECURITY AND THIS RN IN ROOM. NO QUESTIONS AT THIS TIME. PLAN OF CARE UPDATED. CALL LIGHT WITHIN REACH NO FUTHER NEEDS.
--- NOTE | 2021-12-18 06:00 | NUR ---
PATIENT BREAKFAST ORDERED. PATIENT ASLEEP. BREATHING EQUAL AND UNLABORED. PATIENT DENIES SUCIDAL IDEATION. PATIENT IS 1 TO 1. THIS RN IN ROOM. CALL LIGHT WITHIN REACH NO FUTHER NEEDS/
--- NOTE | 2021-12-18 07:32 | NUR ---
Shift report received from HEIDI Hernandez pt resting safely in bed w/ security in room for 1:1, no needs at this time
--- NOTE | 2021-12-18 09:00 | NUR ---
Spoke with pt. He is resting in bed with security in the room. Let him know his step mom had called. I did not give out any infor, but wanted to know if he would like them given information. He states, "NO", only to his biological dad. He is currently on a hold from [facility], but plans on discharge to his bio dad, Logan, home if he can be discharged. Per [address] P[address], PT states he is not cleared for dc as he is not safe to walk per notes from. yesterday. PT will work with pt today.
--- NOTE | 2021-12-18 10:00 | NUR ---
Pt resting safely in bed w/ call light in reach. Morning assesment complete, scheduled meds given, and IV fluids hung and infusing per provider order. Pt denies and pain, nausea, or needs at this time. in room to discuss plan of care, surgical consent signed for EGD/colonoscopy, all questions and concerns answered, pt's daughter at beside.
--- NOTE | 2021-12-18 10:00 | NUR ---
Pt resting in bed safely w/ call light in reach. army senior officer Petr and RN Farideh in room for 1:1. Pt denies any pain, nausea, or needs at this time. Morning assesment complete, scheduled meds given, and PICC line flushed w/ NS and then Hep locked per provider orders
--- NOTE | 2021-12-18 11:00 | NUR ---
Surgery crew here for pt, LR w/ straight tubing and extension hung, pre procedure checklist and anesthisa summary completed.
--- NOTE | 2021-12-18 12:00 | NUR ---
Pt resting in bed safely w/ call light in reach. real estate loan officer jacki and RN Florinda in room for 1:1. Pt denies any pain or needs at this time
--- NOTE | 2021-12-18 13:20 | NUR ---
Spoke with Ondina from [facility]. Plan at this time is for placement for this pt. They are concerned about another suicide attempt if pt is discharged to home.
--- NOTE | 2021-12-18 14:00 | NUR ---
Pt resting in bed w/ call light in reach, security sme jacki and RN Florinda in room for 1:1 pt denies any pain or needs at this time.
--- NOTE | 2021-12-18 16:00 | NUR ---
Received call from Julita at [facility], they need a written medical clearance to send to IP placement programs they are attempting place pt. Updated Dr. Paredes. Clearance faxed to Julita [phone]. Called [facility] number and reached [place]. Updated I have faxed the medical clearance.
--- NOTE | 2021-12-18 16:00 | NUR ---
Pt working w/ PT, security representative jacki w/ hussein for 1:1, pt denies any needs, states he is doing much better
--- NOTE | 2021-12-18 17:06 | NUR ---
Received a call from pt's stepmother, was a coworker of mine. She is requesting update. Informed I cannot release any information as pt has requested no information to be released. I then received a call from [facility] and they were requesting info. I also declined to release info. To pts room and asked if he has called [facility] and he states he did and now would like his counselor from [facility] to call him. Called the crisis phone and asked if they would notify Elvin, pt would like to speak with her.
--- NOTE | 2021-12-18 17:42 | NUR ---
COVID SWAB COLLECTED AND SENT TO IN-HOUSE
--- NOTE | 2021-12-18 18:00 | NUR ---
Pt resting in bed safely w/ call light in reach, safety and security manager reina and RN gokul in room for 1:1. Pt denies any pain or nausea, nicotine lozenger given upon request no other needs at this time
--- NOTE | 2021-12-18 19:50 | NUR ---
SHIFT REPORT RECEIVED FROM CELINENDZAHEER PRASAD AT BEDSIDE. pt AWAKE ND RSTING IN BED, NICOTINE LOZENGE PROVIDED PER pt REQUEST, NICKO HASSAN AND SECURITY REMAINS WITH pt. NO FURTHER NEEDS, CALL LIGHT IN REACH.
--- NOTE | 2021-12-18 21:41 | NUR ---
Patient vitals are complete. Patient is lying in bed and watching tv.
--- NOTE | 2021-12-18 21:50 | NUR ---
ASSESSMENT COMPLETE, SCHEDULED MEDS GIVEN ALONG WITH NIO PRN TYLENOL pt REPORTS 7/10 PAIN IN LEFT GROIN AREA, HX HERNIA. LUMP NOTED, BUT NO PROTUSION. pt REPORTS THIS HAS BEEN NOTED FOR SEVERAL MONTHS. pt RECENTLY AMBULATING IN HALLWAY, BUT THEN REPORTS INCREASED PAIN. pt ENCOURAGED TO REST IN BED. PICC LINE C/D/I, BLOOD RETURN TO ALL 3 LUMENS- SALINE FLUSHED AND HEP LOCKED PER POLICY. NEW ALCOHOL CAPS IN PLACE. pt PLEASANT AT THIS TIME, REMAINS 1:1. NO FURTHER NEEDS.
--- NOTE | 2021-12-19 00:53 | NUR ---
pt RESTING IN BED WITH EYES CLOSED, NICKO REBOLLEDO REMAINS WITH pt, pt 1:1. NO DISTRESS NOTED, CALL LIGHT IN REACH. WILL CONTINUE TO MONITOR.
--- NOTE | 2021-12-19 02:59 | NUR ---
pt requesting nicotine lozenge and oragel. obtained these for pt and visualized pt applying the oragel and placing lozenge in mouth
--- NOTE | 2021-12-19 03:35 | NUR ---
pt AWAKE AND RESTING IN BED, WATCHING TV. ASSESSMENT COMPLETE, NO ACUTE CHANGES. CALL LIGHT IN REACH, THIS RN REMAINS IN ROOM WITH pt AT THIS TIME, 1:1.
--- NOTE | 2021-12-19 04:20 | NUR ---
MESSAGE SENT TO DR CUTLER REGARDING pt's PAIN IN LEFT GROIN, REPORTS HX OF HERNIA. LUMP NOTED WHEN PALPATING, BUT NOT PROTRUDING. NIO FOR TYLENOL WAS ORDERED AND GIVEN EARLIER IN SHIFT, CHEF & OWNERHEIDI ANTONIO ALSO MADE AWARE.
--- NOTE | 2021-12-19 05:18 | NUR ---
pt AWAKE AND RESTING IN BED, SECURIY AND NICKO HASSAN REMAIN WITH pt, pt COMPLAINT WITH CARE AND APPEARS IN GOOD SPIRITS. FRESH COFFEE PROVIDED, VSS AND I&O'S COMPLETE. NO FURTHER NEEDS, CALL LIGHT IN REACH.
--- NOTE | 2021-12-19 05:31 | NUR ---
pt AWAKE AND RESTING IN BED, pt ASKING ABOUT HOLD PROCESS AND WHEN pt WOULD BE DISCHARGED. pt STATES, "I HAVE A PLACE WITH MY DAD AND I DON'T KNOW WHY I CAN'T JUST GO THERE BECAUSE I ALRADY TOLD THEM I'M NOT GOING TO AN INPATIENT STAY". YOU CAN DROP ME OFF THERE, BUT THEN I'M LEAVING". pt CALM AND INTERACTIVE WITH STAFF. QUESTIONS ANSWERED, pt ALSO EDUCATED THAT MD CUTLER CAN ANSWER FURTHER QUESTIONS WITH MD ROUNDING. pt VERBALIZED UNDERSTANDING. NO FURTHER NEEDS AT THIS TIME, CALL LIGHT IN REACH.
--- NOTE | 2021-12-19 07:30 | NUR ---
REPORT RECEIVED FROM NIGHT RN AND PT. CARE RESUMED. PT. IS ALERT AND ORIENTED TO ALL. HE IS PLEASANT. SECURITY X2 PRESENT IN THE ROOM. PICC LINE DRESSING CHANGED USING STERILE TECHNIQUE. PICC WNL AND FLUSHES, RETURNS BLOOD. HEP. LOCKED. PT. DENIES THOUGHTS OF HARM TO SELF OR OTHERS. MORNING ASSESSMENT COMPLETED AND MEDS ADMIN.
--- NOTE | 2021-12-19 09:45 | NUR ---
Spoke with pt and he denies c/o. CCS seeing pt daily or more. Awaiting placement by CCS.
--- NOTE | 2021-12-19 10:28 | NUR ---
PT. USES CALL LIGHT APPROPRIATELY FOR AN UPDATE ON DISCHARGE. PT. STATES HE HAS A PLACE TO GO AND [facility] [facility] IN PLACE AND SHOULD BE ABLE TO LEAVE. HE APPEARS ANXIOUS. PT. REASSURED THAT CASE MANAGEMENT IS ARRANGING SERVICES AFTER DISCHARGE. PT. AGREED TO WALK AROUND THE UNIT WITH RN AND SECURITY.
--- NOTE | 2021-12-19 10:50 | NUR ---
PT. REQUESTS THAT WE FAX A DOCUMENT STATING HE IS A PATIENT HERE BECAUSE HE HAS A WARRANT AND WAS TOLD DOCUMENTATION WAS NEEDED. [facility]
--- NOTE | 2021-12-19 13:24 | NUR ---
PT. ASSISTED WITH WRAPPING PICC FOR SHOWER. SECURITY IN THE BATHROOM WITH HIM. PT. BECAME TEARFUL AND STATES HIS DAUGHTER'S MANUFACTURING TEST TECHNICIAN TOLD HER THAT HE WAS IN THE HOSPITAL AND WOULD NOT ALLOW PHONE CONTACT. THERAPEUTIC COMMUNICATION USED AND PT. REASSURED. PT. IN THE SHOWER WITH SECURITY.
--- NOTE | 2021-12-19 17:32 | NUR ---
PT REQUESTING MORE NICOTINE. 21 MG PATCH ORDERED.
--- NOTE | 2021-12-19 19:00 | NUR ---
SHIFT REPORT RECEIVED FROM DAYSHIFT RN DYLON AT BEDSIDE. pt RESTING IN BED, EYES CLOSED. pt REMAINS 1:1, SECURITY IN ROOM. RR EVEN AND UNLABORED, NO DISTRESS NOTED. PICC DRESSING C/D/I. CALL LIGHT IN REACH.
--- NOTE | 2021-12-19 20:30 | NUR ---
pt AMBULATING IN HALLWAY WITH FWW, pt REMAINS 1:1 FOR SAFETY. pt REPORTS FEELINGS OF ANXIETY, WILL GIVE PRN ANXIETY MEDICATION AFTER pt COMPLETES AMBULATION. CALL LIGHT IN REACH.
--- NOTE | 2021-12-19 21:15 | NUR ---
VS AND I&Os DONE
--- NOTE | 2021-12-19 21:19 | NUR ---
ASSESSMENT COMPLETE, SCHEDULED MEDS GIVEN (SEE EMAR). PICC SITE WNL, TRIPLE LUMEN WNL AND BRISK RETURN NOTED TO ALL LUMENS. SITE FLUSHED AND HEP LOCKED PER POLICY, NEW ALCOHOL CAPS IN PLACE. pt REPORTS ANXIETY, PRN ANXIETY MEDICATION ALSO GIVEN. pt REMAINS 1:1, CALL LIGHT IN REACH.
--- NOTE | 2021-12-19 21:55 | NUR ---
PT REPORTS MOUTH IRRITATION, PRN MOUTHWASH AND GEL PROVIDED. NO OTHER NEEDS. CALL LIGHT IN REACH.
--- NOTE | 2021-12-19 22:45 | NUR ---
pt RESTING IN BED, EYES CLOSED AND RR EVEN AND UNLABORED. NO DISTRESS NOTED. CALL LIGHT IN REACH. AND SECURITY REMAINS IN ROOM. pt REMAINS 1:1 FOR pt SAFETY.
--- NOTE | 2021-12-20 01:24 | NUR ---
pt CONTINUES TO REST IN BED WITH EYES CLOSED. RR EVEN AND UNLABORED, NO DISTRESS NOTED. pt RESTING ON HIS BACK, HOB ELEVATED. SECURITY REMAINS IN ROOM WITH pt. CALL LIGHT IN REACH, WILL MONITOR FOR CHANGES.
--- NOTE | 2021-12-20 02:33 | NUR ---
pt LAYING SUPINE IN BED WITH EYES CLOSED. RR EVEN AND UNLABORED. pt APPEARS RELAXED AND COMFORTABLE. pt REMAINS 1:1, NO S/SX OF ANXIETY OR AGITATION NOTED. WILL CONTINUE TO MONITOR. CALL LIGHT IN REACH.
--- NOTE | 2021-12-20 03:46 | NUR ---
pt CONTINUES TO REST IN BED WITH EYES CLOSED. RR EVEN AND UNLABORED, CALL LIGHT IN REACH. pt REMAINS 1:1, NO DISTRESS NOTED.
--- NOTE | 2021-12-20 05:41 | NUR ---
pt RESTING IN BED, EYES CLOSED. RESPIRATIONS EVEN AND UNLABORED. pt REMAINS 1:1, SECURITY IN ROOM FOR DIRECT SIGHT OF pt. CALL LIGHT IN REACH OF pt. WILL CONTINUE TO MONITOR.
--- NOTE | 2021-12-20 06:31 | NUR ---
VS AND I&O'S COMPLETE. pt DUE TO VOID, LAST VOID AROUND MIDNIGHT. pt DENIES NEED TO VOID, WILL MONITOR. SBP SOFT, UPPER 90'S. pt RESTING SUPINE IN BED. pt SLEPT FOR MOST OF NIGHT, STATING, "THIS IS THE BEST SLEEP I'VE GOTTEN IN A WHILE". pt REMAINS 1:1.
--- NOTE | 2021-12-20 07:18 | NUR ---
BEDSIDE REPORT FROM JIMMY GORDON, NO NEW CONCERNS OVER NIGHT. HE HAS BEEN COOPERATIVE WITH CARE.
--- NOTE | 2021-12-20 09:13 | NUR ---
PT BREAKFAST DELIVERED, PT SITTING UP AT BEDSIDE, NO DISTRESS NOTED. 1:1 WITH SECURITY BECERRA.
--- NOTE | 2021-12-20 09:48 | NUR ---
PROTOCOL BROKE BY THIS RN, PT ASKED TO WEAR HIS OWN CLOTHS THIS RN GAVE OK TO ALLOW. MEETING WITH EARTH MOVING TECHNICIAN AND SECURITY AND REVIEWING SAFETY PLAN, THIS IS NOT ALLOWED. PT NOTED TO HAVE HIS CELL PHONE. NEW PLAN IS TO PROVIDE PT WITH SCRUBS TO WEAR WITH POCKETS CUT OUT, ALSO ALL OF HIS BELONGINGS NEED TO BE REMOVED FROM PT ROOM.
--- NOTE | 2021-12-20 10:01 | NUR ---
PATIENT ON ROOM PHONE, THIS IS ALLOWED PER OUR WELL REACTIVATOR OPERATOR BRENNEN Parkinson, DUE TO PT HAVING 1:1 AT ARMS LENGTH AT ALL TIMES. PT NOW PROVIDED WITH PAPER SCRUBS FROM [employer]. PT AGREED TO WEAR, AFTER HE IS OFF THE PHONE.
--- NOTE | 2021-12-20 10:08 | NUR ---
PT CHANGED INTO PAPER SCRUBS AT THIS TIME, ALL BELONGINGS ARE NOW AT NURSES STATION WITH PT ID ON THE BAG
--- NOTE | 2021-12-20 10:49 | NUR ---
PT AMBULATING IN HALLS WITH SECURITY, NO DISTRESS NOTED.
--- NOTE | 2021-12-20 10:56 | NUR ---
PATIENT AMBULATING HALLS WITH SECURITY THIS MORNING. LINEN CHANGED. NO OTHER NEEDS AT THIS TIME. SECURITY AT BEDSIDE
--- NOTE | 2021-12-20 11:59 | NUR ---
PT AMBULATING IN HALLS BACK TO ROOM NOW WITH SECURITY 1:1, PT COOPERATIVE, HE VERBALIZED WANTING CCS TO ARRIVE HE WANTS TO BE RELEASED, HE FEELS HE SHOULD BE RELEASED TODAY
--- NOTE | 2021-12-20 12:03 | NUR ---
PATIENT ON A REGULAR DIET. HE IS RECEIVING SAFETY TRAYS. APPETITE IS DECENT. REGULAR DIET IS APPROPRIATE. NO NUTRITION INTERVENTION NEEDED AT THIS TIME.
--- NOTE | 2021-12-20 12:09 | NUR ---
PT VERBALIZED FEELING IMPATIENT, ANXIOUS, THIS RN SAID "DO YOU FEEL LIKE THE VISTRIL WOULD HELP?" HE SAID "YES, IT MIGHT NO BE A BAD IDEA" VISTRIL 25MGPO PRN ADMINISTERED AND NICOTINE LUIS FELIPE. ADMINISTERED WELL.
--- NOTE | 2021-12-20 12:10 | NUR ---
PT AMBULATING IN HALLWAY WITH SECURITY.PT WAVED AND SMILED AND RESPONDED WHEN I SAID KATY. GAVE ENCOURAGEMENT, PT WAVED IN ACKNOWLEDGEMENT. WILL FOLLOW
--- NOTE | 2021-12-20 12:30 | NUR ---
PATIENT HAS BEEN UP WALKING IN THE [place] NUMEROUS TIME TODAY. PATIENT APPEARS CALM AND COOPERATIVE. PATIENT ASKING THIS RN IF THERE IS AN ETA FOR [facility]CS HE WOULD LIKE TO GO HOME. PATIENT ADVISED NO ETA AT THIS TIME. PATIENT CONTINUES TO WALK IN [place] WITH SECURITY. NO CHANGE IS CASE MANAGEMENT PLAN AT THIS TIME.
--- NOTE | 2021-12-20 13:30 | NUR ---
COMMUNITY COUNCELING SOLUTIONS AT BEDSIDE WITH PT.
--- NOTE | 2021-12-20 14:06 | NUR ---
PT RESTING IN BED AFTER MEETING WITH CCS, HE SAID HE FEELS TIRED HE IS SAD ABOUT THE PLAN THAT CCS HAS MADE FOR CONTINUED CARE AT AN IN CARE FACILITY [employer] [place] [place]. PT COOPERATIVE WITH CARE, PICC LINE REMOVED WITHIN NORMAL LIMITS. SECURITY HERNAN IN ROOM FOR 1:1.
--- NOTE | 2021-12-20 15:28 | NUR ---
PT CALLED RN AND ASKED IF THERE IS A HAY SYSTEM IN HOUSE THAT CONNECTS TO THE TV TO PLAY GAMES ON. HE SAID HE REMEMBERS ONE IN ONE OF THE ROOMS HE WAS IN. CALLED FOUNTAIN DISPENSER IN REGARDS TO THIS REQUEST. THIS RN HAS NOT SEEN THIS TYPE OF ITEM THIS DEPT. PT SAID OK
--- NOTE | 2021-12-20 16:28 | NUR ---
PT REQUEST TO TAKE A SHOWER. SUPPLIES PROVIDED, SECURITY HERNAN TO MONITOR 1:1
--- NOTE | 2021-12-20 16:45 | NUR ---
PT FINISHED WITH SHOWER, NO DISTRESS, COOPERATIVE WITH RN INTO ROUND.
--- NOTE | 2021-12-20 17:31 | NUR ---
PT HAS BEEN COOPERATIVE TODAY VISTRIL ONCE FOR ANXIETY WAITING FOR CCS TO COME INTO ASSESS TODAY. ALSO HE WAS VERY SAD WITH PLAN TO D/C TO [facility] THROUGH [facility]. HE HAS CONTINUED TO BE COOPERATIVE WITH CARE, SECURITY 1:1 ALL SHIFT. PICC LINE REMOVED PER . PT SHOWERED THIS AFTERNOON WITH SECURITY MONITORING AT ALL TIMES. MICHELE MAHARAJ ASSISTING WITH 15 MIN CHECK CHARTING
--- NOTE | 2021-12-20 17:43 | NUR ---
PATIENT SITTING IN BED EATING DINNER. VITALS CHARTED. SECURITY AT BEDSIDE.
--- NOTE | 2021-12-20 18:27 | NUR ---
PT REQUESTED MAGIC MOUTH WASH AND ORAJEL AFTER DINNER FOR MOUTH PAIN. PT COOPERATIVE WITH CARE. RESTING IN BED WATCHING TV
--- NOTE | 2021-12-20 18:47 | NUR ---
PT OUT OF THE ROOM TO AMBULATE IN HALLS WITH SECURITY STEPHAN 1:1
--- NOTE | 2021-12-20 19:28 | NUR ---
SHIFT REPORT RECEIVED FROM HEATHER GORDON. PT WALKING HALLS WITH SECURITY.
--- NOTE | 2021-12-20 19:42 | NUR ---
PT REQUESTS NICOTINE LOZENGE, PROVIDED. NO OTHER NEEDS. SECURITY IN ROOM.
--- NOTE | 2021-12-20 21:00 | NUR ---
ASSESSMENT, VS AND I&O COMPLETED. SCHEDULED MEDS PROVIDED BY MAGDI GORDON. PT REPORTS ANXIETY, MED PROVIDED FOR ANXIETY. GCS 15, A&O X4. PT STATES HE IS NOT SUICIDAL AT THIS TIME. LEFT UPPER ARM WHERE PICC LINE WAS DCd IS WNL. LUNGS CLEAR, HEART TONES REGUALR. CMS INTACT. SECURITY IN ROOM. NO OTHER NEEDS. CALL LIGHT IN REACH.
--- NOTE | 2021-12-20 23:48 | NUR ---
PT RESTING IN BED. RR EVEN, UNLABORED. SECURITY IN ROOM. CALL LIGHT IN REACH.
--- NOTE | 2021-12-21 02:30 | NUR ---
PT RESTING IN BED, EYES CLOSED. RR EVEN, UNLABORED. SECURITY IN ROOM. CALL LIGHT IN REACH.
--- NOTE | 2021-12-21 03:21 | NUR ---
SECURITY OUT OF ROOM, EMIL MAHARAJ IN ROOM FOR 1:1. PT RESTING IN BED, EYES CLOSED. RR EVEN, UNLABORED. CALL LIGHT IN REACH.
--- NOTE | 2021-12-21 03:45 | NUR ---
IN TO SWAP SECURITY OUT AND THIS SPECIAL MACHINE OPERATOR RESUMES OBSERVATION OF PT, PT RESTING IN BED, RR EVEN
--- NOTE | 2021-12-21 04:15 | NUR ---
PT IS RESTING AND RR EVEN, THIS CLASSROOM INSTRUCTOR DIRECT OBSERVATION OF PT
--- NOTE | 2021-12-21 04:28 | NUR ---
SECURITY BACK IN ROOM. PT RESTING IN BED, EYES CLOSED. RR EVEN, UNLABORED. CALL LIGHT IN REACH.
--- NOTE | 2021-12-21 06:32 | NUR ---
PT RESTING IN BED, EYES CLOSED. RR EVEN, UNLABORED. SECURITY IN ROOM. CALL LIGHT IN REACH.
--- NOTE | 2021-12-21 07:31 | NUR ---
Patient in bed resting, eyes closed, respirations even and non labored. Security in room observing patient at bedside. No current needs.
--- NOTE | 2021-12-21 10:07 | NUR ---
Patient awake, alert and oriented x4. Patient denies pain and or distress. Patient cooroporative with cares. Patient denies thoughts of self harm. Patient tolerated breakfast. Orajel, majic mouth, nicotine lozenge, vistaril 25mg po and lido swish/spit admin per pt request. Security in room at this times.
--- NOTE | 2021-12-21 11:00 | NUR ---
Patient ambulating in hallway with security. Patient is in good spirits this morning, he reports he is looking forward to leaving the hospital.
--- NOTE | 2021-12-21 12:40 | NUR ---
Orajel and nicotine logenze provided per pt request.
--- NOTE | 2021-12-21 14:30 | NUR ---
[facility] STAFF PERSON STATES HE IS READY TO RELEASE PT. MD NOTIFIED BY PHONE AND STATES HE IS MEDICALLY CLEAR TO GO AND WILL PASS IT ALONG TO MD COMING ON SHIFT.
[2021-12-21] MEDS ORDERED: RISPERIDONE1 MG PO (14:47)
--- NOTE | 2021-12-21 15:36 | NUR ---
ALL DISCHARGE INSTRUCTIONS REVIEWED BY CHARGE NURSE WITH PT. NO IV PRESENT. PT. LEFT WITH ALL BELONGINGS WITH SECURITY AND AMBULATED.
== END 2021-12-21 15:25 | disposition home or self-care (01) | DRG 917 ==
LOC: ED 20:28 → MS 12-06 01:50 → CCU 12-06 01:50 → MS 12-17 11:00
PROVIDERS: ADMIT Student in an Organized Health Care Education/Training Program; ATTEND Student in an Organized Health Care Education/Training Program
PROC: 0BH18EZ Insertion of Endotracheal Airway into Trachea, Via Natural or Artificial Opening Endoscopic (ICD-10-PCS; principal; 2021-12-06)
PROC: 5A1955Z Respiratory Ventilation, Greater than 96 Consecutive Hours (ICD-10-PCS; 2021-12-06)
PROC: 8E0ZXY6 Isolation (ICD-10-PCS; 2021-12-08)
PROC: 02HV33Z Insertion of Infusion Device into Superior Vena Cava, Percutaneous Approach (ICD-10-PCS; 2021-12-08)
PROC: 0BH18EZ Insertion of Endotracheal Airway into Trachea, Via Natural or Artificial Opening Endoscopic (ICD-10-PCS; 2021-12-11)
PROC: 5A1955Z Respiratory Ventilation, Greater than 96 Consecutive Hours (ICD-10-PCS; 2021-12-11)
DX: T43.592A Poisoning by other antipsychotics and neuroleptics, intentional self-harm, initial encounter (principal); J96.01 Acute respiratory failure with hypoxia; U07.1 COVID-19; N17.9 Acute kidney failure, unspecified; E87.2 Acidosis; T43.212A Poisoning by selective serotonin and norepinephrine reuptake inhibitors, intentional self-harm, initial encounter; F31.9 Bipolar disorder, unspecified; K21.9 Gastro-esophageal reflux disease without esophagitis; Z79.899 Other long term (current) drug therapy; F15.10 Other stimulant abuse, uncomplicated; E87.6 Hypokalemia; Z87.891 Personal history of nicotine dependence
CPT/HCPCS: 31500; 31720; 36415; 36569; 36600; 51702; 70450; 71045; 74018; 80048; 80053; 82010; 82553; 82803; 83605; 83735; 84100; 85025; 87040; 87070; 87205; 90715; 93005; 93010; 94002; 94003; 94640; 97110; 97116; 97530; 99285-25; A9270; C1751; C9113; C9803; G0480; J0330; J0780; J1630; J1650; J1940; J1953; J2001; J2060; J2250; J2405; J2543; J2550; J2560; J2704; J2997; J3010; J3360; J3475; J3480; J7030; J7040; J7060; J7070; J7121; Q0177; U0003

== ENCOUNTER 2022-02-16 11:24 | Emergency (ER) | payer OTHER ==
[~2022-02-16] VITALS: Ht 188 cm; Wt 85.3 kg
[~2022-02-16 11:24] MED LIST changes: +REXULTI3 MG PO; +RISPERIDONE1 MG PO
--- OUTSIDE RECORDS SUMMARY | 2022-02-16 11:26 | XMS ---
PreManage Notification: CAMERON ARMIJO Security Doorkeeper Events 4 event(s) in the past 18 months Most recent security events: Elopement at [facility] 12/05/2021 19:36 - Other Details: PATIENT LEFT AMA Elopement at [facility] 11/27/2021 09:21 - Other Details: PATIENT LEFT AMA Elopement at [facility] 11/27/2021 09:21 - Other Details: PATIENT LEFT AMA CRITERIA MET - Group Notification - [facility] CARE PROVIDERS [facility] 11/27/2021-Current PHONE: Unknown Gurvinder has no Care Guidelines for this patient. Yudith VISIT COUNT (12 MO[address] [facility] TOTAL 11 NOTE: Visits indicate total known visits. ED/UCC VISIT TRACKING (12 MO.) 02/16/2022 11:24 [facility] [place] TYPE: Emergency COMPLAINT: - HERNIA ISSUE 12/05/2021 20:29 [facility] [place] TYPE: Emergency COMPLAINT: - OD INTENTIONAL 12/05/2021 19:36 [facility] [place] TYPE: Emergency COMPLAINT: - OVERDOSE DIAGNOSES: - Personal history of nicotine dependence - Laceration without foreign body of left forearm, initial encounter - Other supervisor mill (current) drug therapy - Poisoning by selective serotonin and norepinephrine reuptake inhibitors, intentional self-harm, initial encounter - Poisoning by other antipsychotics and neuroleptics, intentional self-harm, initial encounter - Poisoning by amphetamines, intentional self-harm, initial encounter - Intentional self-harm by unspecified sharp object, initial encounter - Other stimulant abuse with intoxication, unspecified 11/27/2021 09:21 [facility] [place] TYPE: Emergency COMPLAINT: - VOMITING, ABDOMINAL PAIN DIAGNOSES: - Personal history of nicotine dependence - Left testicular pain - Other prison (current) drug therapy - Left lower quadrant pain [facility]21 09[facility] COMPLAINT: - HEADACHE DIAGNOSES: - Personal history of nicotine dependence - Headache, unspecified - Chronic sinusitis, unspecified - Migraine, unspecified, not intractable, without status migrainosus 08/15/2021 09:58 [facility] COMPLAINT: - POSS HERNIA DIAGNOSES: - Personal history of nicotine dependence - Unilateral inguinal hernia, without obstruction or gangrene, not specified as recurrent - Left lower quadrant pain 08/05/2021 10:22 [facility] Heller TYPE: Emergency COMPLAINT: - TOOTH PAIN 07/15/2021 20:30 [facility] Heller TYPE: Emergency COMPLAINT: - SHORTNESS OF BREATH DIAGNOSES: - Personal history of nicotine dependence - COVID- 07/13/2021 14:14 [facility] TYPE: Emergency COMPLAINT: - CHEST PAIN,LEFT ARM PAIN DIAGNOSES: - Anesthesia of skin - Personal history of nicotine dependence - Other chest pain - COVID- - Headache, unspecified 06/22/2021 23:04 [facility] TYPE: Emergency DIAGNOSES: 0. SI 05/08/2021 20:52 [...] initial encounter INPATIENT VISIT TRACKING (12 MO.) 12/06/2021 01:50 [facility] [place] TYPE: Medical Surgical COMPLAINT: - OVERDOSE,METH INTOXICATION DIAGNOSES: - Poisoning by other antipsychotics and neuroleptics, intentional self-harm, initial encounter - Acidosis - Acute respiratory failure with hypoxia - Gastro-esophageal reflux disease without esophagitis - Other stimulant abuse, uncomplicated - Acute kidney failure, unspecified - Personal history of nicotine dependence - Poisoning by other antipsychotics and neuroleptics, accidental (unintentional), initial encounter - COVID-19 - Bipolar disorder, unspecified - Acute respiratory failure with hypoxia - Gastro-esophageal reflux disease without esophagitis - Bipolar disorder, unspecified - Poisoning by selective serotonin and norepinephrine reuptake inhibitors, intentional self-harm, initial encounter - Other supervisor mill (current) drug therapy - Hypokalemia [id number]
== END 2022-02-16 14:01 | disposition home or self-care (01) ==
LOC: ED 11:24
DX: K40.90 Unilateral inguinal hernia, without obstruction or gangrene, not specified as recurrent (principal); Z87.891 Personal history of nicotine dependence
CPT/HCPCS: 36415; 80053; 81001; 83690; 85025; 99284

== ENCOUNTER 2022-05-26 15:35 | Emergency (ER) | payer OTHER ==
[~2022-05-26] VITALS: Ht 188 cm; Wt 73.5 kg
--- OUTSIDE RECORDS SUMMARY | 2022-05-26 18:10 | XMS ---
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 Yudith VISIT COUNT (12 MO.) [facility] TOTAL 11 NOTE: Visits indicate total known visits. ED/UCC VISIT TRACKING (12 MO.) 05/26/2022 15:36 [facility] [place] TYPE: Emergency COMPLAINT: - HEAD INJURY 02/16/2022 11:24 [facility] [place] TYPE: Emergency COMPLAINT: - HERNIA ISSUE DIAGNOSES: - Personal history of nicotine dependence - Unilateral inguinal hernia, without obstruction or gangrene, not specified as recurrent 12/05/2021 20:29 [facility] [place] TYPE: Emergency COMPLAINT: - OD INTENTIONAL 12/05/2021 19:36 [facility] [place] TYPE: Emergency COMPLAINT: - OVERDOSE DIAGNOSES: - Personal history of nicotine dependence - Laceration without foreign body of left forearm, initial encounter - Other extermination supervisor (current) drug therapy - Poisoning by selective serotonin and norepinephrine reuptake inhibitors, intentional self-harm, initial encounter - Poisoning by other antipsychotics and neuroleptics, intentional self-harm, initial encounter - Poisoning by amphetamines, intentional self-harm, initial encounter - Intentional self-harm by unspecified sharp object, initial encounter - Other stimulant abuse with intoxication, unspecified 11/27/2021 09:21 [facility] [place] TYPE: Emergency COMPLAINT: - VOMITING, ABDOMINAL PAIN DIAGNOSES: - Contact with and (suspected) exposure to COVID-19 - Personal history of nicotine dependence - Left testicular pain - Other senior care (current) drug therapy - Left lower quadrant pain 09/15/2021 09:01 [facility] [place] TYPE: Emergency COMPLAINT: - HEADACHE DIAGNOSES: - Personal history of nicotine dependence - Headache, unspecified - Contact with and (suspected) exposure to COVID-19 - Chronic sinusitis, unspecified - Migraine, unspecified, not intractable, without status migrainosus 08/15/2021 09:58 [facility] [place] TYPE: Emergency COMPLAINT: - POSS HERNIA DIAGNOSES: - Personal history of nicotine dependence - Unilateral inguinal hernia, without obstruction or gangrene, not specified as recurrent - Left lower quadrant pain 08/05/2021 10:22 [facility] [place] TYPE: Emergency COMPLAINT: - TOOTH PAIN 07/15/2021 20:[address] [facility] [place] TYPE: Emergency COMPLAINT: - SHORTNESS OF BREATH DIAGNOSES: - Personal history of nicotine dependence - 07/13/2021 14:14 [facility] Heller TYPE: Emergency COMPLAINT: - CHEST PAIN,LEFT ARM PAIN DIAGNOSES: - Anesthesia of skin - Personal history of nicotine dependence - Other chest pain - COVID-19 - Headache, unspecified 06/22/2021 23:04 [facility] DIAGNOSES: 0. SI INPATIENT VISIT TRACKING (12 MO.) 12/06/2021 01:50 [facility] Heller TYPE: Medical Surgical COMPLAINT: - OVERDOSE,METH INTOXICATION [...] inhibitors, intentional self-harm, initial encounter - Other senior care (current) drug therapy - Hypokalemia [id number]
== END 2022-05-27 08:13 | disposition home or self-care (01) ==
LOC: ED 15:35
PROC: 0T9B70Z Drainage of Bladder with Drainage Device, Via Natural or Artificial Opening (ICD-10-PCS; principal; 2022-05-27)
DX: S02.0XXA Fracture of vault of skull, initial encounter for closed fracture (principal); S02.19XA Other fracture of base of skull, initial encounter for closed fracture; S02.40EA Zygomatic fracture, right side, initial encounter for closed fracture; F15.10 Other stimulant abuse, uncomplicated; Z20.822 Contact with and (suspected) exposure to COVID-19; Z87.891 Personal history of nicotine dependence; Y35.819A Legal intervention involving manhandling, unspecified person injured, initial encounter
CPT/HCPCS: 36415; 51701; 70450; 70486; 72125; 80053; 85025; 87502; 99285-25; A9270; C9803; G0480; U0003

== ENCOUNTER 2023-01-03 19:16 | Emergency (ER) | payer OTHER ==
[~2023-01-03] VITALS: Ht 188 cm; Wt 80.7 kg
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
[2023-01-03] MEDS ORDERED: NARCAN4 MG INH (20:37)
== END 2023-01-03 21:05 | disposition home or self-care (01) ==
LOC: ED 19:16
DX: T50.901A Poisoning by unspecified drugs, medicaments and biological substances, accidental (unintentional), initial encounter (principal); Z87.891 Personal history of nicotine dependence
CPT/HCPCS: 36415; 70450; 72125; 80053; 85025; 86850; 86900; 86901; 99284-25; G0480; J2310

== ENCOUNTER 2024-06-21 10:41 | Emergency (ER) | payer OTHER ==
[~2024-06-21] VITALS: Ht 188 cm; Wt 82.3 kg
--- OUTSIDE RECORDS SUMMARY | 2024-06-21 10:46 | XMS ---
PreManage Notification: CAMERON ARMIJO Security Interactive Digital Media Specialist Events No recent Security Events currently on file CRITERIA MET - Group Notification CARE PROVIDERS [facility] 11/27/2021-Current PHONE: Unknown -[facility] Dentist: Customs Compliance Manager [facility] PHONE: [phone] -Ata- Dentist: Customs Compliance Manager [facility] Dental [facility] PHONE: [phone] Gurvinder has no Care Guidelines for this patient. E.D. VISIT COUNT (12 MO.) 2 [facility] TOTAL 2 NOTE: Visits indicate total known visits. ED/UCC VISIT TRACKING (12 MO.) 06/21/2024 10:42 [facility] [place] TYPE: Emergency COMPLAINT: - GENITAL PAIN 07/29/2023 10:16 [facility] [place] TYPE: Emergency COMPLAINT: - DENTAL PROBLEM DIAGNOSES: - Other specified disorders of teeth and supporting structures - Periapical abscess without sinus - Personal history of nicotine dependence INPATIENT VISIT TRACKING (12 MO.) No inpatient visits to display in this time frame [id number]
[2024-06-21] MEDS ORDERED: LIDOCAINE 2% VISCOUS 6 ML SYR TOP ONE (11:00)
[2024-06-21 11:53] LABS: BILIRUBIN, URINE NEGATIVE (negative); BLOOD/HGB, URINE NEGATIVE (Negative); KETONE, URINE SMALL (Negative); LEUK ESTERASE, URINE NEGATIVE (negative); NITRITE, URINE NEGATIVE (negative)
[2024-06-21 12:52] VITALS: BP 132/85
== END 2024-06-21 12:52 | disposition home or self-care (01) ==
LOC: ED 10:41
PROVIDERS: Emergency Medicine
DX: R33.9 Retention of urine, unspecified (principal); Z87.891 Personal history of nicotine dependence
CPT/HCPCS: 51702; 51798; 76870; 81003; 99284-25

== ENCOUNTER 2024-06-26 23:47 | Emergency (ER) | payer OTHER ==
[~2024-06-26] VITALS: Ht 188 cm; Wt 65.0 kg
[~2024-06-26 23:47] MED LIST changes: +CEPHALEXIN500 M1 PO; +FLOMAX0.4 MG PO; +NARCAN4 MG INH
--- OUTSIDE RECORDS SUMMARY | 2024-06-26 23:54 | XMS ---
PreManage Notification: CAMERON ARMIJO Security Order Checker Events No recent Security Events currently on file CRITERIA MET - Group Notification - [facility] - 2 Visits in 30 Days CARE PROVIDERS [facility] 11/27/2021-Current PHONE: Unknown -, [facility] Dentist: Advanced Analytics Associate [facility] PHONE: [phone] -Ata- Dentist: Advanced Analytics Associate [facility] PHONE: [phone] Gurvinder has no Care Guidelines for this patient. E.DBrielle VISIT COUNT (12 MO.) 3 J[facility]ON Nava TOTAL 3 NOTE: Visits indicate total known visits. ED/UCC VISIT TRACKING (12 MO.) 06/26/2024 23:47 [facility] [place] TYPE: Emergency COMPLAINT: - URINE PROBLEMS 06/21/2024 10:42 [facility] [place] TYPE: Emergency COMPLAINT: - GENITAL PAIN DIAGNOSES: - Personal history of nicotine dependence - Retention of urine, unspecified 07/29/2023 10:16 [facility] [place] TYPE: Emergency COMPLAINT: - DENTAL PROBLEM DIAGNOSES: - Other specified disorders of teeth and supporting structures - Periapical abscess without sinus - Personal history of nicotine dependence INPATIENT VISIT TRACKING (12 MO.) No inpatient visits to display in this time frame [email or web address]
[2024-06-27] MEDS ORDERED: LIDOCAINE 2% VISCOUS 6 ML SYR TOP ONE (01:45)
[2024-06-27] MEDS ORDERED: PYRIDIUM100 MG PO (02:22)
[2024-06-27] MEDS ORDERED: PHENAZOPYRIDINE HCL 95 MG TAB PO ONE (02:30)
[2024-06-27 02:40] VITALS: BP 123/97
== END 2024-06-27 02:51 | disposition other institution, planned readmission (95) ==
LOC: ED 23:47
DX: R33.9 Retention of urine, unspecified (principal); Z87.891 Personal history of nicotine dependence
CPT/HCPCS: 51702; 99283-25

== ENCOUNTER 2024-07-01 15:45 | Emergency (ER) | payer OTHER ==
[~2024-07-01] VITALS: Ht 188 cm; Wt 86.0 kg
[~2024-07-01 15:45] MED LIST changes: +PYRIDIUM100 MG PO
[2024-07-01] MEDS ORDERED: LIDOCAINE 2% VISCOUS 6 ML SYR TOP ONE (16:30)
--- OUTSIDE RECORDS SUMMARY | 2024-07-01 17:03 | XMS ---
PreManage Notification: CAMERON ARMIJO Security Interlibrary Loan Specialist Events No recent Security Events currently on file CRITERIA MET - Group Notification - [facility] - 2 Visits in 30 Days CARE PROVIDERS [facility] 11/27/2021-Current PHONE: Unknown -, [facility] Dentist: Environmental Property Assessor [facility] PHONE: [phone] -Ata- Dentist: Environmental Property Assessor [facility] PHONE: [phone] Gurvinder has no Care Guidelines for this patient. E.DBrielle VISIT COUNT (12 MO.) 4 JASON Nava TOTAL 4 NOTE: Visits indicate total known visits. ED/UCC VISIT TRACKING (12 MO.) 07/01/2024 15:45 [facility] [place] TYPE: Emergency COMPLAINT: - CATH ISSUE 06/26/2024 23:47 [facility] [place] TYPE: Emergency COMPLAINT: - URINE PROBLEMS DIAGNOSES: - Personal history of nicotine dependence - Retention of urine, unspecified 06/21/2024 10:42 [facility] [place] TYPE: Emergency [...] visits to display in this time frame [email or web address]
[2024-07-01 17:23] VITALS: BP 126/86
== END 2024-07-01 17:24 | disposition home or self-care (01) ==
LOC: ED 15:45
DX: R33.9 Retention of urine, unspecified (principal); Z87.891 Personal history of nicotine dependence; Z79.899 Other long term (current) drug therapy
CPT/HCPCS: 51702; 51798; 99283-25

== ENCOUNTER 2024-07-03 11:01 | Emergency (ER) | payer OTHER ==
[~2024-07-03] VITALS: Ht 188 cm; Wt 86.0 kg
--- OUTSIDE RECORDS SUMMARY | 2024-07-03 11:03 | XMS ---
PreManage Notification: CAMERON ARMIJO Security Stone Breaker Events No recent Security Events currently on file CRITERIA MET - Group Notification - [facility] - 2 Visits in 30 Days CARE PROVIDERS [facility] 11/27/2021-Current PHONE: Unknown -, [facility] Dentist: Stone Rubber [facility] PHONE: [phone] -Ata- Dentist: Stone Rubber [facility] PHONE: [phone] Gurvinder has no Care Guidelines for this patient. E.DBrielle VISIT COUNT (12 MO.) 5 JASON Nava TOTAL 5 NOTE: Visits indicate total known visits. ED/UCC VISIT TRACKING (12 MO.) 07/03/2024 11:01 [facility] [place] TYPE: Emergency COMPLAINT: - URINE PROBLEM 07/01/2024 15:45 [facility] [place] TYPE: Emergency [...] visits to display in this time frame [id number]
[2024-07-03] MEDS ORDERED: LIDOCAINE 2% VISCOUS 6 ML SYR TOP ONE (11:15)
[2024-07-03 12:05] VITALS: BP 115/75
== END 2024-07-03 12:05 | disposition left against medical advice (07) ==
LOC: ED 11:01
DX: R33.9 Retention of urine, unspecified (principal); F31.9 Bipolar disorder, unspecified; F41.9 Anxiety disorder, unspecified; Z87.891 Personal history of nicotine dependence; Z53.29 Procedure and treatment not carried out because of patient's decision for other reasons; Z79.899 Other long term (current) drug therapy
CPT/HCPCS: 99283